=== PATIENT | female | born 1950 | race Caucasian/White ===

== ENCOUNTER 2018-06-26 12:10 | Inpatient (IN) | payer MEDICARE, OTHER ==
[~2018-06-26] VITALS: Ht 154.9 cm; Wt 55.2 kg
--- NOTE | 2018-06-26 12:56 | EKG ---
[address] [address] Test Date: 2018-06-26 Test Time: 12:54:47 Pat Name: KIRSTEN RICH Department: Room: Gender: F Fleet Sales Associate: : 1950 Requested By: PATRICIO MCPHERSON Order Number: [id number] Reading MD: Garret Dsouza MD Measurements Intervals [place] Rate: 85 P: 54 AR: 152 QRS: 58 QRSD: 88 T: 59 QT: 338 QTc: 407 Interpretive Statements SINUS RHYTHM Electronically Signed On 07-01-2018 11:44:44 CDT by Garret Dsouza MD
[2018-06-26 13:08] LABS: BASO % 0 % (0-3); EOS # 0.1 x10^3/uL (0.0-0.7); EOS % 1 % (0-3); HEMATOCRIT 40.8 % (36.0-47.0); LYMPH # 2.3 x10^3/uL (1.0-4.8); LYMPH % 29 % (24-48); MEAN CORPUSCULAR HEMOGLOBIN 31 pg (25-35); MEAN CORPUSCULAR HGB CONC 34 g/dL (31-37); MEAN CORPUSCULAR VOLUME 89 fL (79-100); MONO # 0.6 x10^3/uL (0.0-1.1); MONO % 7 % (0-9); NEUT # 4.7 x10^3uL (1.8-7.7); NEUT % 62 % (31-73); PLATELET COUNT 250 x10^3/uL (140-400); RED BLOOD COUNT 4.58 x10^6/uL (3.50-5.40); RED CELL DISTRIBUTION WIDTH 13.8 % (11.5-14.5); WHITE BLOOD COUNT 7.7 x10^3/uL (4.0-11.0)
--- NOTE | 2018-06-26 13:09 | PHYS DOC ---
Adult General Chief Complaint Chief Complaint: PSYCH EVALUATION [facility] HPI Patient is a 67 year old female who presents with suicidal ideation. Patient had history of bipolar disorder and had several years of [facility] service. Patient had one suicidal attempt after his ex made her to leave his home 3 days ago and while the kenney was at the home to make her leaving the house, she used a dog leash and tried to hang herself from a ceiling fan that did not work but caused some enrrique on her neck. Patient was at a temporary psych observation and had admitting to senior behavioral unit and sent to ER for medical clearance. Patient denies suicidal and homicidal ideation and hallucination at this time. Review of Systems Review of Systems Constitutional: Denies fever or chills [] Eyes: Denies change in visual acuity, redness, or eye pain [] HENT: Denies nasal congestion or sore throat [] Respiratory: Denies cough or shortness of breath [] Cardiovascular: No additional information not addressed in HPI [] GI: Denies abdominal pain, nausea, vomiting, bloody stools or diarrhea [] : Denies dysuria or hematuria [] Musculoskeletal: Denies back pain or joint pain [] Integument: Denies rash or skin lesions [] Neurologic: Denies headache, focal weakness or sensory changes [] Endocrine: Denies polyuria or polydipsia [] All other systems were reviewed and found to be within normal limits, except as documented in this note. Physical Exam Physical Exam Constitutional: Well developed, well nourished, no acute distress, non-toxic appearance, anxious. [] HENT: Normocephalic, atraumatic Eyes: PERRLA, EOMI, conjunctiva normal, no discharge. [] Neck: Normal range of motion, no tenderness, supple, no stridor, several area of old ecchymosis in bilateral side of neck. [] Cardiovascular:Heart rate regular rhythm, no murmur [] Lungs & Thorax: Bilateral breath sounds clear to auscultation [] Abdomen: Bowel sounds normal, soft, no tenderness, no masses, no pulsatile masses. [] Skin: Warm, dry, no erythema, no rash. [] Back: No tenderness, no CVA tenderness. [] Extremities: No tenderness, no cyanosis, no clubbing, ROM intact, no edema. [] Neurologic: Alert and oriented X 3, normal motor function, normal sensory function, no focal deficits noted. [] Psychologic: Affect anxious, judgement normal, mood normal. [] EKG EKG EKG interpreted by me. EKG at 1254 showed normal sinus rhythm at rate of 85, no acute ST and T-wave abnormalities.[] Radiology/Procedures Radiology/Procedures [] Course & Med Decision Making Course & Med Decision Making Pertinent Labs reviewed. (See chart for details) Patient was medically cleared for psych admission regarding suicidal ideation. [] Dragon Disclaimer Dragon Disclaimer This electronic medical record was generated, in whole or in part, using a voice recognition dictation system. Departure Departure: Impression: Primary Impression: Suicide attempt Additional Impression: Tobacco abuse Disposition: ADMITTED INPATIENT (at 1442) Condition: STABLE Referrals: DAMARI TARANGO DO (PCP) Problem Qualifiers PATRICIO MCPHERSON MD Jun 26, 2018 13:09
[2018-06-26 13:21] LABS: ALBUMIN 3.9 g/dL (3.4-5.0); ALBUMIN/GLOBULIN RATIO 1.1 (1.0-1.7); CALCIUM 9.7 mg/dL (8.5-10.1); CREATININE 1.1 mg/dL (0.6-1.0); GFR 49.5; MAGNESIUM 1.8 mg/dL (1.8-2.4); POTASSIUM 3.9 mmol/L (3.5-5.1); TOTAL BILIRUBIN 0.4 mg/dL (0.2-1.0); TOTAL PROTEIN 7.5 g/dL (6.4-8.2)
[2018-06-26 14:39] LABS: BACTERIA,URINE 0 /HPF (0-FEW); BARBITURATES NEG (NEG); BENZODIAZEPINES POS (NEG); BILIRUBIN,URINE NEG (NEG); CANNABINOIDS NEG (NEG); CLARITY,URINE CLEAR; COCAINE NEG (NEG); COLOR,URINE STRAW; GLUCOSE,URINE NEG (NEG); METHADONE NEG (NEG); NITRITE,URINE NEG (NEG); OPIATES NEG (NEG); PHENCYCLIDINE NEG (NEG); RBC,URINE 0 /HPF (0-2); SQUAMOUS EPITHELIAL CELL,UR FEW /LPF; UROBILINOGEN,URINE 0.2 mg/dL (0.2 mg/dL); WBC,URINE 0 /HPF (0-4)
[2018-06-26 14:40] LABS: AMPHETAMINE/METHAMPHETAMINE NEG (NEG)
[2018-06-26] MEDS ORDERED: METHYL SALICYLATE/MENTHOL TOPICAL OINTMENT 29GM TUBE. TP PRN (18:00)
[2018-06-26] MEDS ORDERED: MAG HYDROX/AL HYDROX/SIMETH 30 ML ORAL.SUSP PO PRN (18:00)
[2018-06-26] MEDS ORDERED: MAGNESIUM HYDROXIDE 2,400 MG/30 ML ORAL.SUSP. PO PRN (18:00)
[2018-06-26 18:08] VITALS: BP 150/86
[2018-06-26] MEDS ORDERED: THYR30TA PO (18:47)
[2018-06-26] MEDS ORDERED: ALBU18HF IH (18:47)
[2018-06-26] MEDS ORDERED: PROP15DR40 EACHEYE (18:47)
[2018-06-26] MEDS ORDERED: VITA1CAP PO (18:47)
[2018-06-26] MEDS ORDERED: DIAZ10TA4 PO (18:47)
[2018-06-26] MEDS ORDERED: GUAI600T47 PO (18:47)
[2018-06-26] MEDS ORDERED: DULO60CA6 PO (18:47)
[2018-06-26] MEDS ORDERED: BUDE10.2 IH (18:47)
[2018-06-26] MEDS ORDERED: MELA3TAB2 PO (18:47)
[2018-06-26] MEDS ORDERED: ALBUTEROL SULFATE 8GM INHALER. IH PRN (19:00)
[2018-06-26] MEDS ORDERED: POLYVINYL ALCOHOL/POVIDONE/PF OPHTH SOLUTION DROPERETTE. OU PRN (19:15)
[2018-06-26] MEDS ORDERED: ALBUTEROL SULFATE 2.5 MG/3 ML NEBU. NEB PRN (19:15)
[2018-06-26] MEDS: NICOTINE 7MG PATCH. TD SCH (19:47)
[2018-06-26] MEDS: diazePAM 5 MG TABLET PO SCH (20:20)
[2018-06-26] MEDS: ACETAMINOPHEN 325 MG TABLET PO PRN (20:20)
[2018-06-26] MEDS: MELATONIN 3 MG TABLET PO SCH (20:20)
--- NOTE | 2018-06-26 20:28 | HP ---
ADMIT DATE: 06/26/2018 PSYCHIATRIC ADMISSION HISTORY/EVALUATION IDENTIFYING DATA: The patient is a 67-year-old female referred from the [facility] in [place] by her primary care physician and the family preservation caseworker at [facility] on account of worsening symptoms of depression and after she attempted to hang herself by a cord tied around the ceiling fan. Reportedly, the ceiling fan dropped and she was not successful. She was being evicted from her home where she was living with her ex-. She states she has not had any prior psychiatric treatment, but recently has been depressed due to multiple psychosocial stressors. CHIEF COMPLAINT: "I do not feel like that now." HISTORY OF PRESENT ILLNESS: Reportedly, the patient was living at home alone, but was evicted on 06/24/2018. The home was owned by her ex- and reportedly "he kicked her out." She has an [employer] case. She made a serious suicide attempt by hanging as noted following the above incident and since then has been involved with the [facility] and has a family preservation caseworker, who coordinated this hospitalization. She had stayed overnight at the [facility] in [place] and was on one-on-one status the entire time. She has had a prior attempt by hanging in 1998 as well. She has also had worsening symptoms of depression, weight loss, insomnia, and has been on psychotropics to help with this. She has seen Dr. Rose, psychiatrist in the past and referred by Dr. Armin Melendez, her primary care physician. She does admit to a history of mood swings and prior diagnosis of bipolar disorder. No alcohol or drug abuse. The patient has some auditory hallucinations and further information from the family preservation caseworker. They believe she has been manic recently. PAST PSYCHIATRIC HISTORY: As above. PAST MEDICAL HISTORY: Thyroid dysfunction, COPD, anemia. DRUG ALLERGIES: CODEINE. CODE STATUS: FULL CODE. CURRENT PSYCHOTROPICS: Negative. FAMILY HISTORY: Noncontributory. SOCIAL HISTORY: No alcohol or drug abuse history. No history of physical, sexual, or elder abuse. She is not known to be a perpetrator. 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 ASSETS: The patient is cognitively intact, has support from the family preservation caseworker at the [facility]. REACTION TO HOSPITALIZATION: The patient is accepting of it. MENTAL STATUS EXAMINATION: The patient was seen individually on evening of 06/26/2018. She is well oriented. Speech coherent, at times somewhat pressured. Abstraction fair, computation is reasonable. Language function intact. Mood is dysphoric, anxious. Affect is mood congruent. Attention span is short. She is quite verbal forthcoming. She is thoroughly and closely assess for active suicidal ideation and denied this. Intellect average. Insight fair. Judgment intact to standard questioning. IMPRESSION: Probable major depressive disorder, recurrent, bipolar 1 disorder, depressed; anxiety disorder, unspecified; impulse control disorder, unspecified. Rest as above. PLAN: Admit to geropsychiatry unit at [facility]. I will see the patient daily individually from a psychiatric standpoint, medical followup per Dr. Llanes/Dr. Ng. Continue the patient on her current psychotropics, observe baseline, then adjust as clinically indicated. We will have nursing staff evaluate her closely for any suicidal ideation and see if she needs a higher level of care than 15-minute checks. We will get past psychiatric records as well. MAN Joselyn HOLLOWAY MD DR: GORDON/roddy JOB#: [id number] / [id number]
--- NOTE | 2018-06-26 20:52 | PDOC ---
Exam Note: Duran Note: Please also refer to the separate dictated note~for this date of service dictated separately.~Patient seen individually. Discussed the patient with Nursing staff reviewed the chart.~Reviewed interim history and current functioning. Reviewed vital signs,~Labs/ Radiology~and current medications noted below. Continue current treatment with the changes noted in the dictated addendum note Assessment: Vital Signs: Vital Signs Date Time Temp Pulse Resp B/P (MAP) Pulse Ox O2 Delivery O2 Flow Rate FiO2 06/26/18 18:08 97.7 84 18 150/86 (107) 93 06/26/18 17:00 Room Air Labs: Laboratory Tests Test 06/26/18 12:57 06/26/18 14:18 White Blood Count 7.7 x10^3/uL (4.0-11.0) Red Blood Count 4.58 x10^6/uL (3.50-5.40) Hemoglobin 14.0 g/dL (12.0-15.5) Hematocrit 40.8 % (36.0-47.0) Mean Corpuscular Volume 89 fL (79-100) Mean Corpuscular Hemoglobin 31 pg (25-35) Mean Corpuscular Hemoglobin Concent 34 g/dL (31-37) Red Cell Distribution Width 13.8 % (11.5-14.5) Platelet Count 250 x10^3/uL (140-400) Neutrophils (%) (Auto) 62 % (31-73) Lymphocytes (%) (Auto) 29 % (24-48) Monocytes (%) (Auto) 7 % (0-9) Eosinophils (%) (Auto) 1 % (0-3) Basophils (%) (Auto) 0 % (0-3) Neutrophils # (Auto) 4.7 x10^3uL (1.8-7.7) Lymphocytes # (Auto) 2.3 x10^3/uL (1.0-4.8) Monocytes # (Auto) 0.6 x10^3/uL (0.0-1.1) Eosinophils # (Auto) 0.1 x10^3/uL (0.0-0.7) Basophils # (Auto) 0.0 x10^3/uL (0.0-0.2) Sodium Level 142 mmol/L (136-145) Potassium Level 3.9 mmol/L (3.5-5.1) Chloride Level 103 mmol/L (98-107) Carbon Dioxide Level 32 mmol/L (21-32) Anion Gap 7 (6-14) Blood Urea Nitrogen 13 mg/dL (7-20) Creatinine 1.1 mg/dL (0.6-1.0) H Estimated GFR (Cockcroft-Gault) 49.5 BUN/Creatinine Ratio 12 (6-20) Glucose Level 144 mg/dL (70-99) H Calcium Level 9.7 mg/dL (8.5-10.1) Magnesium Level 1.8 mg/dL (1.8-2.4) Total Bilirubin 0.4 mg/dL (0.2-1.0) Aspartate Amino Transferase (AST) 28 U/L (15-37) Alanine Aminotransferase (ALT) 29 U/L (14-59) Alkaline Phosphatase 62 U/L (46-116) Total Protein 7.5 g/dL (6.4-8.2) Albumin 3.9 g/dL (3.4-5.0) Albumin/Globulin Ratio 1.1 (1.0-1.7) Urine Collection Type Unknown Urine Color Straw Urine Clarity Clear Urine pH 7.0 Urine Specific Fonda 1.010 Urine Protein Neg (NEG-TRACE) Urine Glucose (UA) Neg mg/dL (NEG) Urine Ketones (Stick) Neg mg/dL (NEG) Urine Blood Neg (NEG) Urine Nitrite Neg (NEG) Urine Bilirubin Neg (NEG) Urine Urobilinogen Dipstick 0.2 mg/dL (0.2 mg/dL) Urine Leukocyte Esterase Neg (NEG) Urine RBC 0 /HPF (0-2) Urine WBC 0 /HPF (0-4) Urine Squamous Epithelial Cells Few /LPF Urine Bacteria 0 /HPF (0-FEW) Urine Opiates Screen Neg (NEG) Urine Methadone Screen Neg (NEG) Urine Barbiturates Neg (NEG) Urine Phencyclidine Screen Neg (NEG) Urine Amphetamine/Methamphetamine Neg (NEG) Urine Benzodiazepines Screen Pos (NEG) Urine Cocaine Screen Neg (NEG) Urine Cannabinoids Screen Neg (NEG) Urine Ethyl Alcohol Neg (NEG) Current Medications: Meds: Current Medications Acetaminophen (Tylenol) 650 mg PRN Q6HRS PRN PO PAIN / TEMP Last administered on 06/26/18at 20:20; Start 06/26/18 at 18:00 Multi-Ingredient Ointment (Analgesic [place]) 1 adilene PRN QID PRN TP MUSCLE PAIN; Start 06/26/18 at 18:00 Al Hydroxide/Mg Hydroxide (Mylanta Plus Xs) 15 ml PRN AFTMEALHC PRN PO DYSPEPSIA; Start 06/26/18 at 18:00 Magnesium Hydroxide (Milk Of Magnesia) 2,400 mg PRN QHS PRN PO CONSTIPATION; Start 06/26/18 at 18:00 Nicotine (Nicoderm Cq 7mg) 1 patch DAILY TD Last administered on 06/26/18at 19: 47; Start 06/26/18 at 19:30 Albuterol Sulfate (Ventolin Hfa Inhaler) 1 puff PRN Q2HR PRN IH FOR ASTHMA; Start 06/26/18 at 19:00; Status UNV Guaifenesin (Mucinex Er) 600 mg BID PO Last administered on 06/26/18at 20:20; Start 06/26/18 at 21:00 Vitamin B Complex 1 cap DAILY PO ; Start 06/27/18 at 09:00 Non-Formulary Medication (Budesonide/ Formoterol Fumarate (Symbicort 160-4.5 Mcg Inhaler)) 2 puff BID IH ; Start 06/26/18 at 21:00; Status UNV Artificial Tears (Refresh Classic) 1 drop PRN QID PRN OU DRY EYE; Start at 19:15 Thyroid ([place] Thyroid) 30 mg DAILY PO ; Start 06/27/18 at 09:00 Diazepam (Valium) 10 mg BID PO Last administered on 06/26/18at 20:20; Start at 21:00 Duloxetine HCl (Cymbalta) 60 mg DAILY PO ; Start 06/27/18 at 09:00 Melatonin 3 mg QHS PO Last administered on 06/26/18at 20:20; Start 06/26/18 at 21:00 Albuterol Sulfate (Ventolin) 2.5 mg PRN Q2HR PRN NEB SHORTNESS OF BREATH; Start 06/26/18 at 19:15 Albuterol Sulfate (Ventolin) 2.5 mg RTQID NEB ; Start 06/26/18 at 20:00 Budesonide (Pulmicort) 0.5 mg RTBID NEB ; Start 06/26/18 at 20:00 Active Scripts Active Reported Symbicort 160-4.5 Mcg Inhaler (Budesonide/Formoterol Fumarate) 10.2 Gm Hfa.aer.ad 2 Puff IH BID Ventolin Hfa Inhaler (Albuterol Sulfate) 18 Gm Hfa.aer.ad 1 Puff IH PRN Q2HR PRN Systane 0.3-0.4% Eye Drops (Propylene Glycol/Peg 400) 15 Ml Drops 1 Drop EACHEYE QID PRN Vitamin B Complex 1 Each Capsule 1 Each PO DAILY Mucinex (Guaifenesin) 600 Mg Tablet.er 600 Mg PO BID [place] Thyroid (Thyroid,Pork) 30 Mg Tablet 30 Mg PO DAILY Melatonin 3 Mg Tablet 3 Mg PO QHS Cymbalta (Duloxetine Hcl) 60 Mg Capsule.dr 60 Mg PO DAILY Diazepam 10 Mg Tablet 10 Mg PO BID I have reviewed the current psychotropics carefully including drug interactions. Risk benefit ratio favors no change other than as noted in my dictated progress note. Diagnosis: Problems: (1) Suicide attempt (2) Tobacco abuse (3) Anxiety disorder (4) Major depressive disorder, recurrent episode (5) Impulse control disorder MICHELLE HOLLOWAY MD Jun 26, 2018 20:52
[2018-06-26] MEDS: BUDESONIDE 0.5 MG/2 ML NEBU NEB SCH (20:59)
[2018-06-26] MEDS: ALBUTEROL SULFATE 2.5 MG/3 ML NEBU. NEB SCH (20:59)
[2018-06-26] MEDS ORDERED: NON FORMULARY ITEM (Budesonide/Formoterol Fumarate (Symbicort 160-4.5 Mcg Inhaler) 2 PUFF) IH SCH (21:00)
[2018-06-27 01:12] LABS: THYROXINE 5.8 ug/dL (4.5-12.0)
[2018-06-27 03:09] LABS: HEMOGLOBIN A1C 5.3 % (4.8-5.6)
[2018-06-27] MEDS: ACETAMINOPHEN 325 MG TABLET PO PRN ×2 (04:53→23:00)
[2018-06-27] MEDS: ALBUTEROL SULFATE 2.5 MG/3 ML NEBU. NEB SCH ×4 (05:35→20:54)
[2018-06-27 06:38] VITALS: BP 138/78
[2018-06-27] MEDS: THYROID,PORK 60 MG TABLET PO SCH (08:04)
[2018-06-27] MEDS: diazePAM 5 MG TABLET PO SCH ×2 (08:04→19:23)
[2018-06-27] MEDS: VITAMIN B COMPLEX CAPSULE. PO SCH (08:04)
[2018-06-27] MEDS: DULoxetine HCL 60 MG CAPSULE.DR PO SCH (08:04)
[2018-06-27] MEDS: NICOTINE 7MG PATCH. TD SCH (08:05)
[2018-06-27] MEDS: BUDESONIDE 0.5 MG/2 ML NEBU NEB SCH ×2 (10:03→20:53)
[2018-06-27 13:48] LABS: THYROID STIM HORMONE (TSH) 3.361 uIU/mL (0.358-3.740)
[2018-06-27 15:43] VITALS: BP 168/93
[2018-06-27 18:26] VITALS: BP 114/73
[2018-06-27] MEDS: MELATONIN 3 MG TABLET PO SCH (19:22)
[2018-06-27] MEDS: traMADol 50 MG TABLET PO PRN (19:23)
--- NOTE | 2018-06-27 20:52 | PDOC ---
Exam Note: Duran Note: Please also refer to the separate dictated note~for this date of service dictated separately.~Patient seen individually. Discussed the patient with Nursing staff reviewed the chart.~Reviewed interim history and current functioning. Reviewed vital signs,~Labs/ Radiology~and current medications noted below. Continue current treatment with the changes noted in the dictated addendum note Assessment: Vital Signs: Vital Signs Date Time Temp Pulse Resp B/P (MAP) Pulse Ox O2 Delivery O2 Flow Rate FiO2 06/27/18 20:23 97 06/27/18 19:23 18 Nasal Cannula 3.0 06/27/18 18:26 97.8 76 114/73 (87) I&O Intake and Output 06/27/18 07:00 Intake Total 840 ml Balance 840 ml Intake Oral 840 ml Current Medications: Meds: Current Medications Acetaminophen (Tylenol) 650 mg PRN Q6HRS PRN PO PAIN / TEMP Last administered on 06/27/18at 04:53; Start 06/26/18 at 18:00 Multi-Ingredient Ointment (Analgesic [place]) 1 adilene PRN QID PRN TP MUSCLE PAIN; Start 06/26/18 at 18:00 Al Hydroxide/Mg Hydroxide (Mylanta Plus Xs) 15 ml PRN AFTMEALHC PRN PO DYSPEPSIA; Start 06/26/18 at 18:00 Magnesium Hydroxide (Milk Of Magnesia) 2,400 mg PRN QHS PRN PO CONSTIPATION; Start 06/26/18 at 18:00 Nicotine (Nicoderm Cq 7mg) 1 patch DAILY TD Last administered on 06/27/18at 08: 05; Start 06/26/18 at 19:30 Albuterol Sulfate (Ventolin Hfa Inhaler) 1 puff PRN Q2HR PRN IH FOR ASTHMA; Start 06/26/18 at 19:00; Status UNV Guaifenesin (Mucinex Er) 600 mg BID PO Last administered on 06/26/18at 20:20; Start 06/26/18 at 21:00; Stop 06/27/18 at 06:30; Status DC Vitamin B Complex 1 cap DAILY PO Last administered on 06/27/18at 08:04; Start at 09:00 Non-Formulary Medication (Budesonide/ Formoterol Fumarate (Symbicort 160-4.5 Mcg Inhaler)) 2 puff BID IH ; Start 06/26/18 at 21:00; Status UNV Artificial Tears (Refresh Classic) 1 drop PRN QID PRN OU DRY EYE; Start at 19:15 Thyroid ([place] Thyroid) 30 mg DAILY PO Last administered on 06/27/18at 08:04; Start 06/27/18 at 09:00 Diazepam (Valium) 10 mg BID PO Last administered on 06/27/18at 19:23; Start at 21:00 Duloxetine HCl (Cymbalta) 60 mg DAILY PO Last administered on 06/27/18at 08:04; Start 06/27/18 at 09:00 Melatonin 3 mg QHS PO Last administered on 06/27/18at 19:22; Start 06/26/18 at 21:00 Albuterol Sulfate (Ventolin) 2.5 mg PRN Q2HR PRN NEB SHORTNESS OF BREATH; Start 06/26/18 at 19:15 Albuterol Sulfate (Ventolin) 2.5 mg RTQID NEB Last administered on 06/27/18at 15 :43; Start 06/26/18 at 20:00 Budesonide (Pulmicort) 0.5 mg RTBID NEB Last administered on 06/27/18at 10:03; Start 06/26/18 at 20:00 Guaifenesin (Mucinex Er) 600 mg PRN BID PRN PO CONGESTION; Start 06/27/18 at 06 :30 Tramadol HCl (Ultram) 50 mg PRN Q6HRS PRN PO PAIN Last administered on at 19:23; Start 06/27/18 at 17:15 Hydroxyzine Pamoate (Vistaril) 50 mg Q4HRS W/A PRN PO ITCHING; Start 06/27/18 at 19:00 Active Scripts Active Reported Symbicort 160-4.5 Mcg Inhaler (Budesonide/Formoterol Fumarate) 10.2 Gm Hfa.aer.ad 2 Puff IH BID Ventolin Hfa Inhaler (Albuterol Sulfate) 18 Gm Hfa.aer.ad 1 Puff IH PRN Q2HR PRN Systane 0.3-0.4% Eye Drops (Propylene Glycol/Peg 400) 15 Ml Drops 1 Drop EACHEYE QID PRN Vitamin B Complex 1 Each Capsule 1 Each PO DAILY Mucinex (Guaifenesin) 600 Mg Tablet.er 600 Mg PO BID [place] Thyroid (Thyroid,Pork) 30 Mg Tablet 30 Mg PO DAILY Melatonin 3 Mg Tablet 3 Mg PO QHS Cymbalta (Duloxetine Hcl) 60 Mg Capsule.dr 60 Mg PO DAILY Diazepam 10 Mg Tablet 10 Mg PO BID I have reviewed the current psychotropics carefully including drug interactions. Risk benefit ratio favors no change other than as noted in my dictated progress note. Diagnosis: Problems: (1) Suicide attempt (2) Tobacco abuse (3) Anxiety disorder (4) Major depressive disorder, recurrent episode (5) Impulse control disorder MICHELLE HOLLOWAY MD Jun 27, 2018 20:52
[2018-06-27] MEDS: hydrOXYzine PAMOATE 25 MG CAPSULE PO PRN (23:00)
--- NOTE | 2018-06-28 04:14 | CONS ---
DATE OF CONSULTATION: 06/27/2018 REASON FOR CONSULTATION: Medical management. HISTORY OF PRESENT ILLNESS: The patient is a 67-year-old female patient who was referred from [facility] in [place] by her primary care physician and the leather case finisher at [facility] on account of worsening symptoms of depression after she attempted to hang herself by a cord tied around the ceiling fan. Reportedly, the ceiling fan dropped and she was not successful. This happened after her evicted here from her home where she was living with her ex-. She was admitted. She apparently has a prior attempt by hanging in 1998 as well. She has also had worsening symptoms of depression, weight loss, and insomnia, has been on psychotropic medication to help with this. She does admit to history of mood swings and prior diagnosed with bipolar disorder. She has some auditory hallucination on further information from the leather case finisher and [facility]. PAST MEDICAL HISTORY: Significant for hypothyroidism, chronic obstructive pulmonary disease and anemia. ALLERGIES: She is allergic to CODEINE. MEDICATIONS: She is currently on following medications: Albuterol sulfate 1 puff every 2 hours, duloxetine 60 mg once a day, diazepam 10 mg twice a day, Symbicort 160/4.5 mcg inhaler 2 puffs twice a day, guaifenesin (Mucinex) 600 mg p.o. b.i.d., Systane 1 drop to each eye 4 times a day, thyroid pork ([place] Thyroid) 30 mg once a day, vitamin B complex 1 tablet once a day, melatonin 3 mg at bedtime. FAMILY HISTORY: Noncontributory. SOCIAL HISTORY: She does smoke, but does not drink alcohol or use recreational drugs. REVIEW OF SYSTEMS: As in history of present illness. PHYSICAL EXAMINATION GENERAL: When I examined her, she looked pale, somewhat cachectic, but no jaundice, cyanosis, or thyromegaly. No jugular venous distention. No lower limb edema. VITAL SIGNS: Her heart rate was 98, blood pressure was 168/93. Her temperature was 97.2, respiratory rate was 20, and oxygen saturation was 97% on 2 liters of oxygen. HEAD, EYES, EARS, NOSE AND THROAT: Showed normocephalic, atraumatic. NECK: Supple. HEART: Showed normal first and second heart sounds with no gallop, rub or murmur. CHEST: Clear to auscultation. No crepitation or rhonchi. ABDOMEN: Scaphoid, soft, nontender. No guarding or rigidity. No organomegaly. Hernial orifices intact. Bowel sounds normal. NEUROLOGIC: She is awake, alert, responding appropriately. All cranial nerves intact. EXTREMITIES: She moves all extremities without difficulty. She ambulates with a walker. LABORATORY DATA: Showed a white cell count of 7700, hemoglobin 14, hematocrit 41, MCV 89 and platelet count 250,000 with normal manual differential. Her chemistry showed a serum sodium of 142, potassium 3.9, chloride 103, bicarbonate 32, anion gap of 7, BUN 13, creatinine 1.1, estimated GFR was 49 mL per minute. Her glucose 144, calcium was 9.7, magnesium 1.8. Total bilirubin, AST, ALT, alkaline phosphatase were normal. Total protein was 7.5, albumin 3.9. Her hemoglobin A1c was 5.3%. Her serum iron was 126, TIBC was 287, iron saturation was 44%. Her serum triglycerides were 129, total cholesterol was 144, LDL was 153, VLDL was 25, and HDL cholesterol was 66 and the ratio was 3. Her vitamin B12 was 767 pg/mL. TSH was 3.3361, total T4 was 5.8, total T3 was 120. Urinalysis was essentially unremarkable and negative and urine toxicology screen was positive for benzodiazepine. ASSESSMENT AND PLAN: In summary, this is a 67-year-old female patient who was admitted with worsening symptoms of depression after she had attempted to hang herself by a cord tied around the ceiling fan. Reportedly, the ceiling fan has dropped and she was not successful. She apparently has had a prior attempt by hanging in 1998 as well. She has weight loss, insomnia and apparently has been on psychotropic medication to help with this. She has seen multiple psychiatrists before and she does admit to history of mood swings and prior diagnosis of bipolar disorder. Medically, the patient is known to have hypothyroidism, chronic obstructive pulmonary disease as well as anemia and hyperlipidemia. From a medical point of view, all her vital signs and lab work seem to be within acceptable range. She is both clinically and biochemically euthyroid. She is on oxygen for her chronic obstructive pulmonary disease and overall she seemed to be medically stable. I will obviously follow all her lab work that is still pending at the time of this dictation and make any necessary recommendation. Thank you, Dr. Landry, for allowing me to participate in the care of this patient. TRAMAINE COMBS MD DR: BASILIO/roddy JOB#: [id number] / [id number]
[2018-06-28] MEDS: BUDESONIDE 0.5 MG/2 ML NEBU NEB SCH ×2 (06:01→20:55)
[2018-06-28] MEDS: ALBUTEROL SULFATE 2.5 MG/3 ML NEBU. NEB SCH ×4 (06:01→20:55)
[2018-06-28 06:15] VITALS: BP 121/67
[2018-06-28] MEDS: VITAMIN B COMPLEX CAPSULE. PO SCH (08:43)
[2018-06-28] MEDS: NICOTINE 7MG PATCH. TD SCH (08:44)
[2018-06-28] MEDS: diazePAM 5 MG TABLET PO SCH ×2 (08:44→20:13)
[2018-06-28] MEDS: DULoxetine HCL 60 MG CAPSULE.DR PO SCH (08:44)
[2018-06-28] MEDS: THYROID,PORK 60 MG TABLET PO SCH (08:45)
[2018-06-28] MEDS: ACETAMINOPHEN 325 MG TABLET PO PRN (11:54)
[2018-06-28 16:35] VITALS: BP 114/70
[2018-06-28] MEDS: MELATONIN 3 MG TABLET PO SCH (20:12)
[2018-06-28] MEDS: hydrOXYzine PAMOATE 25 MG CAPSULE PO PRN (20:12)
[2018-06-28] MEDS: BACLOFEN 10 MG TABLET PO SCH (20:14)
--- NOTE | 2018-06-28 23:06 | PDOC ---
Exam Note: Duran Note: Please also refer to the separate dictated note~for this date of service dictated separately.~Patient seen individually. Discussed the patient with Nursing staff reviewed the chart.~Reviewed interim history and current functioning. Reviewed vital signs,~Labs/ Radiology~and current medications noted below. Continue current treatment with the changes noted in the dictated addendum note Assessment: Vital Signs: Vital Signs Date Time Temp Pulse Resp B/P (MAP) Pulse Ox O2 Delivery O2 Flow Rate FiO2 06/28/18 20:57 98 Nasal Cannula 2.0 06/28/18 16:35 98.0 84 20 114/70 (85) I&O Intake and Output 06/28/18 07:00 Intake Total 1125 ml Balance 1125 ml Intake Oral 1125 ml Current Medications: Meds: Current Medications Acetaminophen (Tylenol) 650 mg PRN Q6HRS PRN PO PAIN / TEMP Last administered on 06/28/18at 11:54; Start 06/26/18 at 18:00 Multi-Ingredient Ointment (Analgesic [place]) 1 adilene PRN QID PRN TP MUSCLE PAIN; Start 06/26/18 at 18:00 Al Hydroxide/Mg Hydroxide (Mylanta Plus Xs) 15 ml PRN AFTMEALHC PRN PO DYSPEPSIA; Start 06/26/18 at 18:00 Magnesium Hydroxide (Milk Of Magnesia) 2,400 mg PRN QHS PRN PO CONSTIPATION; Start 06/26/18 at 18:00 Nicotine (Nicoderm Cq 7mg) 1 patch DAILY TD Last administered on 06/28/18at 08:44 ; Start 06/26/18 at 19:30 Albuterol Sulfate (Ventolin Hfa Inhaler) 1 puff PRN Q2HR PRN IH FOR ASTHMA; Start 06/26/18 at 19:00; Status UNV Guaifenesin (Mucinex Er) 600 mg BID PO Last administered on 06/26/18at 20:20; Start 06/26/18 at 21:00; Stop 06/27/18 at 06:30; Status DC Vitamin B Complex 1 cap DAILY PO Last administered on 06/28/18at 08:43; Start at 09:00 Non-Formulary Medication (Budesonide/ Formoterol Fumarate (Symbicort 160-4.5 Mcg Inhaler)) 2 puff BID IH ; Start 06/26/18 at 21:00; Status UNV Artificial Tears (Refresh Classic) 1 drop PRN QID PRN OU DRY EYE; Start at 19:15 Thyroid ([place] Thyroid) 30 mg DAILY PO Last administered on 06/28/18at 08:45; Start 06/27/18 at 09:00 Diazepam (Valium) 10 mg BID PO Last administered on 06/28/18at 20:13; Start 06/26 at 21:00 Duloxetine HCl (Cymbalta) 60 mg DAILY PO Last administered on 06/28/18at 08:44; Start 06/27/18 at 09:00 Melatonin 3 mg QHS PO Last administered on 06/28/18 20:12; Start 06/26/18 at 21 :00 Albuterol Sulfate (Ventolin) 2.5 mg PRN Q2HR PRN NEB SHORTNESS OF BREATH; Start 06/26/18 at 19:15 Albuterol Sulfate (Ventolin) 2.5 mg RTQID NEB Last administered on 06/28/18at 20: 55; Start 06/26/18 at 20:00 Budesonide (Pulmicort) 0.5 mg RTBID NEB Last administered on 06/28/18at 20:55; Start 06/26/18 at 20:00 Guaifenesin (Mucinex Er) 600 mg PRN BID PRN PO CONGESTION; Start 06/27/18 at 06 :30 Tramadol HCl (Ultram) 50 mg PRN Q6HRS PRN PO PAIN Last administered on at 19:23; Start 06/27/18 at 17:15 Hydroxyzine Pamoate (Vistaril) 50 mg Q4HRS W/A PRN PO ITCHING Last administered on 06/28/18 20:12; Start 06/27/18 at 19:00 Baclofen (Lioresal) 5 mg TID PO Last administered on 06/28/18at 20:14; Start 06/28 at 21:00 Duloxetine HCl (Cymbalta) 20 mg DAILY PO ; Start 06/29/18 at 09:00 Active Scripts Active Reported Symbicort 160-4.5 Mcg Inhaler (Budesonide/Formoterol Fumarate) 10.2 Gm Hfa.aer.ad 2 Puff IH BID Ventolin Hfa Inhaler (Albuterol Sulfate) 18 Gm Hfa.aer.ad 1 Puff IH PRN Q2HR PRN Systane 0.3-0.4% Eye Drops (Propylene Glycol/Peg 400) 15 Ml Drops 1 Drop EACHEYE QID PRN Vitamin B Complex 1 Each Capsule 1 Each PO DAILY Mucinex (Guaifenesin) 600 Mg Tablet.er 600 Mg PO BID [place] Thyroid (Thyroid,Pork) 30 Mg Tablet 30 Mg PO DAILY Melatonin 3 Mg Tablet 3 Mg PO QHS Cymbalta (Duloxetine Hcl) 60 Mg Capsule.dr 60 Mg PO DAILY Diazepam 10 Mg Tablet 10 Mg PO BID I have reviewed the current psychotropics carefully including drug interactions. Risk benefit ratio favors no change other than as noted in my dictated progress note. Diagnosis: Problems: (1) Suicide attempt (2) Tobacco abuse (3) Anxiety disorder (4) Major depressive disorder, recurrent episode (5) Impulse control disorder MICHELLE HOLLOWAY MD Jun 28, 2018 23:06
[2018-06-29] MEDS: hydrOXYzine PAMOATE 25 MG CAPSULE PO PRN ×2 (04:47→19:44)
[2018-06-29] MEDS: ACETAMINOPHEN 325 MG TABLET PO PRN (04:47)
[2018-06-29] MEDS: BUDESONIDE 0.5 MG/2 ML NEBU NEB SCH ×2 (05:23→19:46)
[2018-06-29] MEDS: ALBUTEROL SULFATE 2.5 MG/3 ML NEBU. NEB SCH ×4 (05:23→19:46)
[2018-06-29 06:21] VITALS: BP 137/67
[2018-06-29] MEDS: VITAMIN B COMPLEX CAPSULE. PO SCH (08:44)
[2018-06-29] MEDS: DULoxetine HCL 60 MG CAPSULE.DR PO SCH (08:45)
[2018-06-29] MEDS: BACLOFEN 10 MG TABLET PO SCH ×3 (08:45→19:44)
[2018-06-29] MEDS: DULoxetine HCL 20 MG CAPSULE.DR PO SCH (08:45)
[2018-06-29] MEDS: NICOTINE 7MG PATCH. TD SCH (08:46)
[2018-06-29] MEDS: diazePAM 5 MG TABLET PO SCH ×2 (08:46→19:44)
--- NOTE | 2018-06-29 09:42 | PN ---
DATE: 06/27/2018 PSYCHIATRIC PROGRESS NOTE This is a late entry 06/27/2018 covers elements not covered in my initial note. SUBJECTIVE: I met with the patient in the evening. The patient slept 7 hours previous night. Overall, she is adapting to the unit. She denies she has a past history of bipolar disorder, even though her records reflect this. She complains of increased anxiety, wanting increased Valium and she is already on 10 b.i.d. We will add hydroxyzine 50 mg q. 2 hours p.r.n. anxiety, max 100 mg in 24 hours. REVIEW OF SYSTEMS: No CV, , pulmonary, eye, ENT system symptoms on review. MENTAL STATUS EXAM: Oriented reasonably. Speech is coherent, rapid at times. Abstraction fair, computation impaired, language function intact, attention span short. Mood and affect showing improvement, somewhat anxious, labile at times. No suicidal ideation. LABORATORY DATA: Reviewed. IMPRESSION: Major depressive disorder, recurrent versus bipolar 1 disorder, mixed with psychotic features; impulse control disorder; anxiety disorder, unspecified. PLAN: Continue psychotropics from initial note. Consider increasing Cymbalta, get past psychiatric records and if bipolar diagnosis suggested consider a mood stabilizer. MAN Joselyn HOLLOWAY MD DR: GORDON/roddy JOB#: [id number] / [id number]
--- NOTE | 2018-06-29 09:47 | PN ---
DATE: 06/28/2018 PSYCHIATRIC PROGRESS NOTE This is a late entry 06/28/2018, covers elements not covered in my initial note. SUBJECTIVE: I met with the patient in the evening at length in her room. The patient slept 7-1/4 hours previous evening. Denies suicidal ideation, started on baclofen for muscle cramps and doing better. We need to get past psychiatric records for questionable diagnosis of bipolar disorder. REVIEW OF SYSTEMS: No CV, , pulmonary, eye, ENT system symptoms on review. Reliability fair. MENTAL STATUS EXAM: Oriented, reasonably well. Speech coherent at times, somewhat pressured. Abstraction fair, computation impaired, language function intact, attention span short. Mood and affect somewhat labile, anxious. No suicidal ideation. LABORATORY DATA: Reviewed. IMPRESSION: Major depressive disorder, recurrent, rule out bipolar 1 disorder, mixed versus depressed; anxiety disorder, unspecified. Rest unchanged. PLAN: Continue psychotropics mentioned in my initial note, increase Cymbalta from 60 mg a day to 80 mg a day, get past psychiatric records. MAN Joselyn HOLLOWAY MD DR: GORDON/roddy JOB#: [id number] / [id number]
[2018-06-29] MEDS: THYROID,PORK 60 MG TABLET PO SCH (12:06)
[2018-06-29 16:05] VITALS: BP 113/69
[2018-06-29] MEDS: MELATONIN 3 MG TABLET PO SCH (19:43)
[2018-06-29] MEDS: traMADol 50 MG TABLET PO PRN (19:43)
--- NOTE | 2018-06-29 20:50 | PDOC ---
Exam Note: Duran Note: Please also refer to the separate dictated note~for this date of service dictated separately.~Patient seen individually. Discussed the patient with Nursing staff reviewed the chart.~Reviewed interim history and current functioning. Reviewed vital signs,~Labs/ Radiology~and current medications noted below. Continue current treatment with the changes noted in the dictated addendum note Assessment: Vital Signs: Vital Signs Date Time Temp Pulse Resp B/P (MAP) Pulse Ox O2 Delivery O2 Flow Rate FiO2 06/29/18 19:48 Room Air 06/29/18 19:43 18 95 06/29/18 16:05 97.8 96 113/69 (84) 06/29/18 05:25 2.0 I&O Intake and Output 06/29/18 07:00 Intake Total 2040 ml Balance 2040 ml Intake Oral 2040 ml # Voids 1 # Bowel Movements 1 Current Medications: Meds: Current Medications Acetaminophen (Tylenol) 650 mg PRN Q6HRS PRN PO PAIN / TEMP Last administered on 06/29/18at 04:47; Start 06/26/18 at 18:00 Multi-Ingredient Ointment (Analgesic [place]) 1 adilene PRN QID PRN TP MUSCLE PAIN; Start 06/26/18 at 18:00 Al Hydroxide/Mg Hydroxide (Mylanta Plus Xs) 15 ml PRN AFTMEALHC PRN PO DYSPEPSIA; Start 06/26/18 at 18:00 Magnesium Hydroxide (Milk Of Magnesia) 2,400 mg PRN QHS PRN PO CONSTIPATION; Start 06/26/18 at 18:00 Nicotine (Nicoderm Cq 7mg) 1 patch DAILY TD Last administered on 06/29/18at 08:46 ; Start 06/26/18 at 19:30 Albuterol Sulfate (Ventolin Hfa Inhaler) 1 puff PRN Q2HR PRN IH FOR ASTHMA; Start 06/26/18 at 19:00; Status UNV Guaifenesin (Mucinex Er) 600 mg BID PO Last administered on 06/26/18at 20:20; Start 06/26/18 at 21:00; Stop 06/27/18 at 06:30; Status DC Vitamin B Complex 1 cap DAILY PO Last administered on 06/29/18at 08:44; Start at 09:00 Non-Formulary Medication (Budesonide/ Formoterol Fumarate (Symbicort 160-4.5 Mcg Inhaler)) 2 puff BID IH ; Start 06/26/18 at 21:00; Status UNV Artificial Tears (Refresh Classic) 1 drop PRN QID PRN OU DRY EYE; Start at 19:15 Thyroid ([place] Thyroid) 30 mg DAILY PO Last administered on 06/29/18 12:06; Start 06/27/18 at 09:00 Diazepam (Valium) 10 mg BID PO Last administered on 06/29/18 19:44; Start 06/26 at 21:00 Duloxetine HCl (Cymbalta) 60 mg DAILY PO Last administered on 06/29/18 08:45; Start 06/27/18 at 09:00 Melatonin 3 mg QHS PO Last administered on 06/29/18 19:43; Start 06/26/18 at 21 :00 Albuterol Sulfate (Ventolin) 2.5 mg PRN Q2HR PRN NEB SHORTNESS OF BREATH; Start 06/26/18 at 19:15 Albuterol Sulfate (Ventolin) 2.5 mg RTQID NEB Last administered on 06/29/18 19: 46; Start 06/26/18 at 20:00 Budesonide (Pulmicort) 0.5 mg RTBID NEB Last administered on 06/29/18 19:46; Start 06/26/18 at 20:00 Guaifenesin (Mucinex Er) 600 mg PRN BID PRN PO CONGESTION; Start 06/27/18 at 06 :30 Tramadol HCl (Ultram) 50 mg PRN Q6HRS PRN PO PAIN Last administered on 19:43; Start 06/27/18 at 17:15 Hydroxyzine Pamoate (Vistaril) 50 mg Q4HRS W/A PRN PO ITCHING Last administered on 06/29/18 19:44; Start 06/27/18 at 19:00 Baclofen (Lioresal) 5 mg TID PO Last administered on 06/29/18 19:44; Start 06/28 at 21:00 Duloxetine HCl (Cymbalta) 20 mg DAILY PO Last administered on 06/29/18 08:45; Start 06/29/18 at 09:00 Active Scripts Active Reported Symbicort 160-4.5 Mcg Inhaler (Budesonide/Formoterol Fumarate) 10.2 Gm Hfa.aer.ad 2 Puff IH BID Ventolin Hfa Inhaler (Albuterol Sulfate) 18 Gm Hfa.aer.ad 1 Puff IH PRN Q2HR PRN Systane 0.3-0.4% Eye Drops (Propylene Glycol/Peg 400) 15 Ml Drops 1 Drop EACHEYE QID PRN Vitamin B Complex 1 Each Capsule 1 Each PO DAILY Mucinex (Guaifenesin) 600 Mg Tablet.er 600 Mg PO BID [place] Thyroid (Thyroid,Pork) 30 Mg Tablet 30 Mg PO DAILY Melatonin 3 Mg Tablet 3 Mg PO QHS Cymbalta (Duloxetine Hcl) 60 Mg Capsule.dr 60 Mg PO DAILY Diazepam 10 Mg Tablet 10 Mg PO BID I have reviewed the current psychotropics carefully including drug interactions. Risk benefit ratio favors no change other than as noted in my dictated progress note. Diagnosis: Problems: (1) Suicide attempt (2) Tobacco abuse (3) Anxiety disorder (4) Major depressive disorder, recurrent episode (5) Impulse control disorder MICHELLE HOLLOWAY MD Jun 29, 2018 20:50
[2018-06-30] MEDS: traMADol 50 MG TABLET PO PRN ×2 (05:29→22:33)
[2018-06-30] MEDS: ALBUTEROL SULFATE 2.5 MG/3 ML NEBU. NEB SCH ×4 (05:31→20:18)
[2018-06-30] MEDS: BUDESONIDE 0.5 MG/2 ML NEBU NEB SCH ×3 (05:32→20:17)
[2018-06-30 06:02] VITALS: BP 162/79
[2018-06-30] MEDS: VITAMIN B COMPLEX CAPSULE. PO SCH (08:31)
[2018-06-30] MEDS: THYROID,PORK 60 MG TABLET PO SCH (08:32)
[2018-06-30] MEDS: DULoxetine HCL 20 MG CAPSULE.DR PO SCH (08:33)
[2018-06-30] MEDS: DULoxetine HCL 60 MG CAPSULE.DR PO SCH (08:33)
[2018-06-30] MEDS: BACLOFEN 10 MG TABLET PO SCH ×3 (08:34→19:46)
[2018-06-30] MEDS: NICOTINE 7MG PATCH. TD SCH (08:35)
[2018-06-30] MEDS: diazePAM 5 MG TABLET PO SCH ×2 (08:35→19:49)
[2018-06-30 16:25] VITALS: BP 173/87
[2018-06-30] MEDS: MELATONIN 3 MG TABLET PO SCH (19:46)
[2018-06-30] MEDS: DIVALPROEX ER 500 MG TAB.ER.24H PO SCH (19:50)
--- NOTE | 2018-06-30 20:50 | PDOC ---
Exam Note: Duran Note: Please also refer to the separate dictated note~for this date of service dictated separately.~Patient seen individually. Discussed the patient with Nursing staff reviewed the chart.~Reviewed interim history and current functioning. Reviewed vital signs,~Labs/ Radiology~and current medications noted below. Continue current treatment with the changes noted in the dictated addendum note Assessment: Vital Signs: Vital Signs Date Time Temp Pulse Resp B/P (MAP) Pulse Ox O2 Delivery O2 Flow Rate FiO2 06/30/18 20:23 99 Room Air 06/30/18 16:25 98.3 101 19 173/87 (115) 06/29/18 05:25 2.0 I&O Intake and Output 06/30/18 07:00 Intake Total 1680 ml Balance 1680 ml Intake Oral 1680 ml # Voids 1 Current Medications: Meds: Current Medications Acetaminophen (Tylenol) 650 mg PRN Q6HRS PRN PO PAIN / TEMP Last administered on 06/29/18at 04:47; Start 06/26/18 at 18:00 Multi-Ingredient Ointment (Analgesic [place]) 1 adilene PRN QID PRN TP MUSCLE PAIN; Start 06/26/18 at 18:00 Al Hydroxide/Mg Hydroxide (Mylanta Plus Xs) 15 ml PRN AFTMEALHC PRN PO DYSPEPSIA; Start 06/26/18 at 18:00 Magnesium Hydroxide (Milk Of Magnesia) 2,400 mg PRN QHS PRN PO CONSTIPATION; Start 06/26/18 at 18:00 Nicotine (Nicoderm Cq 7mg) 1 patch DAILY TD Last administered on 06/30/18at 08:35 ; Start 06/26/18 at 19:30 Albuterol Sulfate (Ventolin Hfa Inhaler) 1 puff PRN Q2HR PRN IH FOR ASTHMA; Start 06/26/18 at 19:00; Status UNV Guaifenesin (Mucinex Er) 600 mg BID PO Last administered on 06/26/18at 20:20; Start 06/26/18 at 21:00; Stop 06/27/18 at 06:30; Status DC Vitamin B Complex 1 cap DAILY PO Last administered on 06/30/18at 08:31; Start at 09:00 Non-Formulary Medication (Budesonide/ Formoterol Fumarate (Symbicort 160-4.5 Mcg Inhaler)) 2 puff BID IH ; Start 06/26/18 at 21:00; Status UNV Artificial Tears (Refresh Classic) 1 drop PRN QID PRN OU DRY EYE; Start at 19:15 Thyroid ([place] Thyroid) 30 mg DAILY PO Last administered on 06/30/18 08:32; Start 06/27/18 at 09:00 Diazepam (Valium) 10 mg BID PO Last administered on 06/30/18 19:49; Start 06/26 at 21:00 Duloxetine HCl (Cymbalta) 60 mg DAILY PO Last administered on 06/30/18 08:33; Start 06/27/18 at 09:00 Melatonin 3 mg QHS PO Last administered on 06/30/18 19:46; Start 06/26/18 at 21 :00 Albuterol Sulfate (Ventolin) 2.5 mg PRN Q2HR PRN NEB SHORTNESS OF BREATH; Start 06/26/18 at 19:15 Albuterol Sulfate (Ventolin) 2.5 mg RTQID NEB Last administered on 06/30/18 20: 18; Start 06/26/18 at 20:00 Budesonide (Pulmicort) 0.5 mg RTBID NEB Last administered on 06/30/18 20:17; Start 06/26/18 at 20:00 Guaifenesin (Mucinex Er) 600 mg PRN BID PRN PO CONGESTION; Start 06/27/18 at 06 :30 Tramadol HCl (Ultram) 50 mg PRN Q6HRS PRN PO PAIN Last administered on 05:29; Start 06/27/18 at 17:15 Hydroxyzine Pamoate (Vistaril) 50 mg Q4HRS W/A PRN PO ITCHING Last administered on 06/29/18 19:44; Start 06/27/18 at 19:00 Baclofen (Lioresal) 5 mg TID PO Last administered on 06/30/18 19:46; Start 06/28 at 21:00 Duloxetine HCl (Cymbalta) 20 mg DAILY PO Last administered on 06/30/18 08:33; Start 06/29/18 at 09:00 Divalproex Sodium (Depakote Er) 500 mg QHS PO Last administered on 06/30/18at 19: 50; Start 06/30/18 at 21:00 Active Scripts Active Reported Symbicort 160-4.5 Mcg Inhaler (Budesonide/Formoterol Fumarate) 10.2 Gm Hfa.aer.ad 2 Puff IH BID Ventolin Hfa Inhaler (Albuterol Sulfate) 18 Gm Hfa.aer.ad 1 Puff IH PRN Q2HR PRN Systane 0.3-0.4% Eye Drops (Propylene Glycol/Peg 400) 15 Ml Drops 1 Drop EACHEYE QID PRN Vitamin B Complex 1 Each Capsule 1 Each PO DAILY Mucinex (Guaifenesin) 600 Mg Tablet.er 600 Mg PO BID [place] Thyroid (Thyroid,Pork) 30 Mg Tablet 30 Mg PO DAILY Melatonin 3 Mg Tablet 3 Mg PO QHS Cymbalta (Duloxetine Hcl) 60 Mg Capsule.dr 60 Mg PO DAILY Diazepam 10 Mg Tablet 10 Mg PO BID I have reviewed the current psychotropics carefully including drug interactions. Risk benefit ratio favors no change other than as noted in my dictated progress note. Diagnosis: Problems: (1) Suicide attempt (2) Tobacco abuse (3) Anxiety disorder (4) Major depressive disorder, recurrent episode (5) Impulse control disorder MICHELLE HOLLOWAY MD Jun 30, 2018 20:50
[2018-07-01] MEDS: ALBUTEROL SULFATE 2.5 MG/3 ML NEBU. NEB SCH ×4 (03:52→21:40)
[2018-07-01 05:46] VITALS: BP 160/87
[2018-07-01] MEDS: VITAMIN B COMPLEX CAPSULE. PO SCH (08:17)
[2018-07-01] MEDS: DULoxetine HCL 60 MG CAPSULE.DR PO SCH (08:17)
[2018-07-01] MEDS: BACLOFEN 10 MG TABLET PO SCH ×3 (08:18→20:53)
[2018-07-01] MEDS: NICOTINE 7MG PATCH. TD SCH (08:19)
[2018-07-01] MEDS: DULoxetine HCL 20 MG CAPSULE.DR PO SCH (08:19)
[2018-07-01] MEDS: diazePAM 5 MG TABLET PO SCH ×2 (08:22→20:53)
[2018-07-01] MEDS: THYROID,PORK 60 MG TABLET PO SCH (08:23)
--- NOTE | 2018-07-01 16:15 | RAD ---
Pelvis with right hip, 3 views, 07/01/2018: HISTORY: Fall, right hip pain No fracture or dislocation is identified. The lateral margin of the right greater trochanter is not optimally defined due to technical factors. There is mild spurring at both hip joints. Moderate degenerative change is evident in the lower lumbar spine. IMPRESSION: No acute bony abnormality is detected. Electronically signed by: Parth Dean MD (07/01/2018 4:12 PM) [facility]
[2018-07-01 16:41] VITALS: BP 167/90
[2018-07-01] MEDS: MELATONIN 3 MG TABLET PO SCH (20:53)
[2018-07-01] MEDS: DIVALPROEX ER 500 MG TAB.ER.24H PO SCH (20:53)
--- NOTE | 2018-07-01 20:58 | PDOC ---
Exam Note: Duran Note: Please also refer to the separate dictated note~for this date of service dictated separately.~Patient seen individually. Discussed the patient with Nursing staff reviewed the chart.~Reviewed interim history and current functioning. Reviewed vital signs,~Labs/ Radiology~and current medications noted below. Continue current treatment with the changes noted in the dictated addendum note Assessment: Vital Signs: Vital Signs Date Time Temp Pulse Resp B/P (MAP) Pulse Ox O2 Delivery O2 Flow Rate FiO2 07/01/18 17:05 93 Room Air 07/01/18 16:41 97.7 100 18 167/90 (115) 06/30/18 23:39 2.0 I&O Intake and Output 07/01/18 07:00 Intake Total 1440 ml Balance 1440 ml Intake Oral 1440 ml # Voids 1 Current Medications: Meds: Current Medications Acetaminophen (Tylenol) 650 mg PRN Q6HRS PRN PO PAIN / TEMP Last administered on 06/29/18 04:47; Start 06/26/18 at 18:00 Multi-Ingredient Ointment (Analgesic [place]) 1 adilene PRN QID PRN TP MUSCLE PAIN Last administered on 07/01/18 02:03; Start 06/26/18 at 18:00 Al Hydroxide/Mg Hydroxide (Mylanta Plus Xs) 15 ml PRN AFTMEALHC PRN PO DYSPEPSIA; Start 06/26/18 at 18:00 Magnesium Hydroxide (Milk Of Magnesia) 2,400 mg PRN QHS PRN PO CONSTIPATION; Start 06/26/18 at 18:00 Nicotine (Nicoderm Cq 7mg) 1 patch DAILY TD Last administered on 07/01/18at 08:19 ; Start 06/26/18 at 19:30 Albuterol Sulfate (Ventolin Hfa Inhaler) 1 puff PRN Q2HR PRN IH FOR ASTHMA; Start 06/26/18 at 19:00; Status UNV Guaifenesin (Mucinex Er) 600 mg BID PO Last administered on 06/26/18at 20:20; Start 06/26/18 at 21:00; Stop 06/27/18 at 06:30; Status DC Vitamin B Complex 1 cap DAILY PO Last administered on 07/01/18 08:17; Start at 09:00 Non-Formulary Medication (Budesonide/ Formoterol Fumarate (Symbicort 160-4.5 Mcg Inhaler)) 2 puff BID IH ; Start 06/26/18 at 21:00; Status UNV Artificial Tears (Refresh Classic) 1 drop PRN QID PRN OU DRY EYE; Start at 19:15 Thyroid ([place] Thyroid) 30 mg DAILY PO Last administered on 07/01/18 08:23; Start 06/27/18 at 09:00 Diazepam (Valium) 10 mg BID PO Last administered on 07/01/18 20:53; Start 06/26 at 21:00 Duloxetine HCl (Cymbalta) 60 mg DAILY PO Last administered on 07/01/18 08:17; Start 06/27/18 at 09:00 Melatonin 3 mg QHS PO Last administered on 07/01/18 20:53; Start 06/26/18 at 21 :00 Albuterol Sulfate (Ventolin) 2.5 mg PRN Q2HR PRN NEB SHORTNESS OF BREATH; Start 06/26/18 at 19:15 Albuterol Sulfate (Ventolin) 2.5 mg RTQID NEB Last administered on 07/01/18 17: 05; Start 06/26/18 at 20:00 Budesonide (Pulmicort) 0.5 mg RTBID NEB Last administered on 06/30/18 20:17; Start 06/26/18 at 20:00 Guaifenesin (Mucinex Er) 600 mg PRN BID PRN PO CONGESTION; Start 06/27/18 at 06 :30 Tramadol HCl (Ultram) 50 mg PRN Q6HRS PRN PO PAIN Last administered on 22:33; Start 06/27/18 at 17:15 Hydroxyzine Pamoate (Vistaril) 50 mg Q4HRS W/A PRN PO ITCHING Last administered on 06/29/18 19:44; Start 06/27/18 at 19:00 Baclofen (Lioresal) 5 mg TID PO Last administered on 07/01/18 20:53; Start 06/28 at 21:00 Duloxetine HCl (Cymbalta) 20 mg DAILY PO Last administered on 07/01/18 08:19; Start 06/29/18 at 09:00 Divalproex Sodium (Depakote Er) 500 mg QHS PO Last administered on 07/01/18at 20: 53; Start 06/30/18 at 21:00 Active Scripts Active Reported Symbicort 160-4.5 Mcg Inhaler (Budesonide/Formoterol Fumarate) 10.2 Gm Hfa.aer.ad 2 Puff IH BID Ventolin Hfa Inhaler (Albuterol Sulfate) 18 Gm Hfa.aer.ad 1 Puff IH PRN Q2HR PRN Systane 0.3-0.4% Eye Drops (Propylene Glycol/Peg 400) 15 Ml Drops 1 Drop EACHEYE QID PRN Vitamin B Complex 1 Each Capsule 1 Each PO DAILY Mucinex (Guaifenesin) 600 Mg Tablet.er 600 Mg PO BID [place] Thyroid (Thyroid,Pork) 30 Mg Tablet 30 Mg PO DAILY Melatonin 3 Mg Tablet 3 Mg PO QHS Cymbalta (Duloxetine Hcl) 60 Mg Capsule.dr 60 Mg PO DAILY Diazepam 10 Mg Tablet 10 Mg PO BID I have reviewed the current psychotropics carefully including drug interactions. Risk benefit ratio favors no change other than as noted in my dictated progress note. Diagnosis: Problems: (1) Suicide attempt (2) Tobacco abuse (3) Anxiety disorder (4) Major depressive disorder, recurrent episode (5) Impulse control disorder MICHELLE HOLLOWAY MD Jul 01, 2018 20:58
[2018-07-01] MEDS: BUDESONIDE 0.5 MG/2 ML NEBU NEB SCH (21:40)
--- NOTE | 2018-07-02 01:13 | PN ---
DATE: 06/30/2018 PSYCHIATRIC PROGRESS NOTE This is a late entry 06/30/2018 covers elements not covered in my initial note. SUBJECTIVE: I met with the patient in the evening. The patient slept 6-3/4 hours, has been somewhat sexually inappropriate, per nursing report, intrusive, manic. I met with her at her room at length, somewhat hyperverbal, manic. MENTAL STATUS EXAMINATION: Speech coherent, rapid. Abstraction fair, computation impaired, language function intact. Mood and affect somewhat grandiose, though she minimizes this. REVIEW OF SYSTEMS: No CV, , pulmonary, eye, ENT system symptoms on review. IMPRESSION: Unchanged from initial note. PLAN: Start Depakote ER 500 mg p.o. at bedtime for her bipolar manic symptoms. Check CBC, CMP, valproic acid level in 3 days. Rest unchanged from initial note. MAN Joselyn HOLLOWAY MD DR: GORDON/roddy JOB#: [id number] / [id number]
--- NOTE | 2018-07-02 01:20 | PN ---
DATE: 06/29/2018 PSYCHIATRIC PROGRESS NOTE This is a late entry for 06/29/2018, covers elements not covered in my initial note. SUBJECTIVE: I met with the patient in the evening. The patient slept 7-1/4 hours previous night. She has been going through the closet of her roommate. Per nursing report, remains hyperverbal, grandiose. Per nursing report appears manic. She is talking about knowing "everything about cancer and knowing how to cure it." REVIEW OF SYSTEMS: No CV, , pulmonary, eye, ENT system symptoms on review. MENTAL STATUS EXAM: Reasonably oriented. Speech coherent, rapid at times. Abstraction fair, computation impaired, language function intact, attention span short. Mood and affect remain somewhat labile and grandiose. LABORATORY DATA: Reviewed. IMPRESSION: Unchanged from initial note. PLAN: Cymbalta has been increased to 80 mg a day, continue, rest unchanged. Consider adding Depakote as a mood stabilizer. MICHELLE HOLLOWAY MD DR: GORDON/roddy JOB#: [id number] / [id number]
[2018-07-02] MEDS: ALBUTEROL SULFATE 2.5 MG/3 ML NEBU. NEB SCH ×4 (05:27→21:05)
[2018-07-02 06:44] VITALS: BP 128/84
[2018-07-02] MEDS: DULoxetine HCL 60 MG CAPSULE.DR PO SCH (07:42)
[2018-07-02] MEDS: NICOTINE 7MG PATCH. TD SCH (07:42)
[2018-07-02] MEDS: DULoxetine HCL 20 MG CAPSULE.DR PO SCH (07:42)
[2018-07-02] MEDS: BACLOFEN 10 MG TABLET PO SCH ×3 (07:43→20:33)
[2018-07-02] MEDS: VITAMIN B COMPLEX CAPSULE. PO SCH (07:45)
[2018-07-02] MEDS: diazePAM 5 MG TABLET PO SCH ×2 (07:45→20:33)
[2018-07-02] MEDS: THYROID,PORK 60 MG TABLET PO SCH (07:45)
[2018-07-02] MEDS: BUDESONIDE 0.5 MG/2 ML NEBU NEB SCH ×2 (11:09→21:05)
[2018-07-02] MEDS: hydrOXYzine PAMOATE 25 MG CAPSULE PO PRN ×2 (13:36→20:35)
[2018-07-02] MEDS: traMADol 50 MG TABLET PO PRN (13:36)
[2018-07-02] MEDS: risperiDONE 1 MG TABLET. PO SCH (14:31)
[2018-07-02 17:00] VITALS: BP 102/73
[2018-07-02] MEDS: MELATONIN 3 MG TABLET PO SCH (20:32)
[2018-07-02] MEDS: DIVALPROEX ER 500 MG TAB.ER.24H PO SCH (20:33)
--- NOTE | 2018-07-02 20:59 | PDOC ---
Exam Note: Duran Note: Please also refer to the separate dictated note~for this date of service dictated separately.~Patient seen individually. Discussed the patient with Nursing staff reviewed the chart.~Reviewed interim history and current functioning. Reviewed vital signs,~Labs/ Radiology~and current medications noted below. Continue current treatment with the changes noted in the dictated addendum note Assessment: Vital Signs: Vital Signs Date Time Temp Pulse Resp B/P (MAP) Pulse Ox O2 Delivery O2 Flow Rate FiO2 07/02/18 17:00 97.7 103 20 102/73 (83) 93 07/02/18 16:25 Room Air 07/02/18 06:44 4.0 I&O Intake and Output 07/02/18 07:00 Intake Total 840 ml Balance 840 ml Intake Oral 840 ml Current Medications: Meds: Current Medications Acetaminophen (Tylenol) 650 mg PRN Q6HRS PRN PO PAIN / TEMP Last administered on 06/29/18 04:47; Start 06/26/18 at 18:00 Multi-Ingredient Ointment (Analgesic [place]) 1 adilene PRN QID PRN TP MUSCLE PAIN Last administered on 07/01/18 02:03; Start 06/26/18 at 18:00 Al Hydroxide/Mg Hydroxide (Mylanta Plus Xs) 15 ml PRN AFTMEALHC PRN PO DYSPEPSIA; Start 06/26/18 at 18:00 Magnesium Hydroxide (Milk Of Magnesia) 2,400 mg PRN QHS PRN PO CONSTIPATION; Start 06/26/18 at 18:00 Nicotine (Nicoderm Cq 7mg) 1 patch DAILY TD Last administered on 07/02/18at 07:42 ; Start 06/26/18 at 19:30 Albuterol Sulfate (Ventolin Hfa Inhaler) 1 puff PRN Q2HR PRN IH FOR ASTHMA; Start 06/26/18 at 19:00; Status UNV Guaifenesin (Mucinex Er) 600 mg BID PO Last administered on 06/26/18at 20:20; Start 06/26/18 at 21:00; Stop 06/27/18 at 06:30; Status DC Vitamin B Complex 1 cap DAILY PO Last administered on 07/02/18 07:45; Start at 09:00 Non-Formulary Medication (Budesonide/ Formoterol Fumarate (Symbicort 160-4.5 Mcg Inhaler)) 2 puff BID IH ; Start 06/26/18 at 21:00; Status UNV Artificial Tears (Refresh Classic) 1 drop PRN QID PRN OU DRY EYE; Start at 19:15 Thyroid ([place] Thyroid) 30 mg DAILY PO Last administered on 07/02/18 07:45; Start 06/27/18 at 09:00 Diazepam (Valium) 10 mg BID PO Last administered on 07/02/18 20:33; Start 06/26 at 21:00 Duloxetine HCl (Cymbalta) 60 mg DAILY PO Last administered on 07/02/18 07:42; Start 06/27/18 at 09:00; Stop 07/02/18 at 13:32; Status DC Melatonin 3 mg QHS PO Last administered on 07/02/18 20:32; Start 06/26/18 at 21 :00 Albuterol Sulfate (Ventolin) 2.5 mg PRN Q2HR PRN NEB SHORTNESS OF BREATH; Start 06/26/18 at 19:15 Albuterol Sulfate (Ventolin) 2.5 mg RTQID NEB Last administered on 07/02/18 16: 25; Start 06/26/18 at 20:00 Budesonide (Pulmicort) 0.5 mg RTBID NEB Last administered on 07/02/18 11:09; Start 06/26/18 at 20:00 Guaifenesin (Mucinex Er) 600 mg PRN BID PRN PO CONGESTION; Start 06/27/18 at 06 :30 Tramadol HCl (Ultram) 50 mg PRN Q6HRS PRN PO PAIN Last administered on 13:36; Start 06/27/18 at 17:15 Hydroxyzine Pamoate (Vistaril) 50 mg Q4HRS W/A PRN PO ITCHING Last administered on 07/02/18 20:35; Start 06/27/18 at 19:00 Baclofen (Lioresal) 5 mg TID PO Last administered on 07/02/18 20:33; Start 06/28 at 21:00 Duloxetine HCl (Cymbalta) 20 mg DAILY PO Last administered on 07/02/18 07:42; Start 06/29/18 at 09:00 Divalproex Sodium (Depakote Er) 500 mg QHS PO Last administered on 07/02/18at 20: 33; Start 06/30/18 at 21:00 Duloxetine HCl (Cymbalta) 30 mg DAILY PO ; Start 07/03/18 at 09:00 Risperidone (RisperDAL) 1 mg DAILY PO Last administered on 07/02/18at 14:31; Start 07/02/18 at 14:00 Active Scripts Active Reported Symbicort 160-4.5 Mcg Inhaler (Budesonide/Formoterol Fumarate) 10.2 Gm Hfa.aer.ad 2 Puff IH BID Ventolin Hfa Inhaler (Albuterol Sulfate) 18 Gm Hfa.aer.ad 1 Puff IH PRN Q2HR PRN Systane 0.3-0.4% Eye Drops (Propylene Glycol/Peg 400) 15 Ml Drops 1 Drop EACHEYE QID PRN Vitamin B Complex 1 Each Capsule 1 Each PO DAILY Mucinex (Guaifenesin) 600 Mg Tablet.er 600 Mg PO BID [place] Thyroid (Thyroid,Pork) 30 Mg Tablet 30 Mg PO DAILY Melatonin 3 Mg Tablet 3 Mg PO QHS Cymbalta (Duloxetine Hcl) 60 Mg Capsule.dr 60 Mg PO DAILY Diazepam 10 Mg Tablet 10 Mg PO BID I have reviewed the current psychotropics carefully including drug interactions. Risk benefit ratio favors no change other than as noted in my dictated progress note. Diagnosis: Problems: (1) Suicide attempt (2) Tobacco abuse (3) Anxiety disorder (4) Major depressive disorder, recurrent episode (5) Impulse control disorder MICHELLE HOLLOWAY MD Jul 02, 2018 20:59
--- NOTE | 2018-07-02 22:59 | PN ---
DATE: 07/01/2018 PSYCHIATRIC PROGRESS NOTE This is a late entry 07/01/2018 covers elements not covered in my initial note. SUBJECTIVE: I met with the patient in the evening. The patient slept 5 hours previous night. Previous night, she accused male staff member of being sexually inappropriate to her. Staff are addressing this. She is somewhat possessive of the television around her, somewhat intrusive. No suicidal or homicidal ideation. REVIEW OF SYSTEMS: No CV, , pulmonary, eye system symptoms on review. Gait unsteady with walker. MENTAL STATUS EXAM: Reasonably oriented. Speech coherent, somewhat pressured at times. Abstraction fair, computation reasonable, language function intact, somewhat hyperverbal at times. No suicidal or homicidal ideation. Attention span short. Language function intact. LABORATORY DATA: Reviewed. IMPRESSION: Probable bipolar 1 disorder, mixed, in partial remission; anxiety disorder, unspecified; personality disorder, unspecified. PLAN: Continue psychotropics from initial note. May adjust Depakote to reach therapeutic level. If manic symptoms are evident, we will reduce the Cymbalta and consider adding Risperdal or Seroquel if needed for mood stabilization. MAN Joselyn HOLLOWAY MD DR: GORDON/roddy JOB#: [id number] / [id number]
[2018-07-03] MEDS: ALBUTEROL SULFATE 2.5 MG/3 ML NEBU. NEB SCH ×4 (05:39→21:27)
[2018-07-03 06:22] VITALS: BP 124/87
[2018-07-03 06:35] LABS: BASO % 0 % (0-3); EOS # 0.2 x10^3/uL (0.0-0.7); EOS % 3 % (0-3); HEMATOCRIT 38.2 % (36.0-47.0); HEMOGLOBIN 12.9 g/dL (12.0-15.5); LYMPH # 2.2 x10^3/uL (1.0-4.8); LYMPH % 28 % (24-48); MEAN CORPUSCULAR HEMOGLOBIN 31 pg (25-35); MEAN CORPUSCULAR HGB CONC 34 g/dL (31-37); MEAN CORPUSCULAR VOLUME 90 fL (79-100); MONO % 13 % (0-9); NEUT # 4.5 x10^3uL (1.8-7.7); NEUT % 57 % (31-73); PLATELET COUNT 225 x10^3/uL (140-400); RED BLOOD COUNT 4.22 x10^6/uL (3.50-5.40); RED CELL DISTRIBUTION WIDTH 14.1 % (11.5-14.5); WHITE BLOOD COUNT 7.9 x10^3/uL (4.0-11.0)
[2018-07-03 06:53] LABS: ALBUMIN 3.4 g/dL (3.4-5.0); ALBUMIN/GLOBULIN RATIO 0.9 (1.0-1.7); ALK PHOS 57 U/L (46-116); ALT (SGPT) 28 U/L (14-59); ANION GAP 8 (6-14); AST (SGOT) 22 U/L (15-37); BLOOD UREA NITROGEN 16 mg/dL (7-20); BUN/CREATININE RATIO 20 (6-20); CALCIUM 9.7 mg/dL (8.5-10.1); CARBON DIOXIDE 30 mmol/L (21-32); CHLORIDE 102 mmol/L (98-107); CREATININE 0.8 mg/dL (0.6-1.0); GFR 71.3; GLUCOSE 93 mg/dL (70-99); SODIUM 140 mmol/L (136-145); TOTAL BILIRUBIN 0.4 mg/dL (0.2-1.0); TOTAL PROTEIN 7.2 g/dL (6.4-8.2); VAL ACID 59 mcg/mL (50-100)
[2018-07-03] MEDS ORDERED: risperiDONE 1 MG TABLET. PO SCH (09:00)
[2018-07-03] MEDS: BUDESONIDE 0.5 MG/2 ML NEBU NEB SCH ×2 (09:27→21:27)
[2018-07-03] MEDS: NICOTINE 7MG PATCH. TD SCH (10:13)
[2018-07-03] MEDS: DULoxetine HCL 20 MG CAPSULE.DR PO SCH ×2 (10:13→10:29)
[2018-07-03] MEDS: VITAMIN B COMPLEX CAPSULE. PO SCH (10:14)
[2018-07-03] MEDS: BACLOFEN 10 MG TABLET PO SCH ×3 (10:14→20:57)
[2018-07-03] MEDS: risperiDONE 1 MG TABLET. PO SCH (10:15)
[2018-07-03] MEDS: THYROID,PORK 60 MG TABLET PO SCH (10:16)
[2018-07-03] MEDS: diazePAM 5 MG TABLET PO SCH ×2 (10:18→20:57)
[2018-07-03] MEDS: DULoxetine HCL 30 MG CAPSULE.DR PO SCH (10:30)
[2018-07-03 16:34] VITALS: BP 123/78
[2018-07-03] MEDS: MELATONIN 3 MG TABLET PO SCH (20:57)
[2018-07-03] MEDS: DIVALPROEX ER 500 MG TAB.ER.24H PO SCH (20:57)
--- NOTE | 2018-07-03 21:01 | PDOC ---
Exam Note: Duran Note: Please also refer to the separate dictated note~for this date of service dictated separately.~Patient seen individually. Discussed the patient with Nursing staff reviewed the chart.~Reviewed interim history and current functioning. Reviewed vital signs,~Labs/ Radiology~and current medications noted below. Continue current treatment with the changes noted in the dictated addendum note Assessment: Vital Signs: Vital Signs Date Time Temp Pulse Resp B/P (MAP) Pulse Ox O2 Delivery O2 Flow Rate FiO2 07/03/18 16:34 97.1 104 18 123/78 (93) 93 Room Air 07/03/18 09:29 2.0 I&O Intake and Output 07/03/18 07:00 Intake Total 1440 ml Balance 1440 ml Intake Oral 1440 ml Labs: Laboratory Tests Test 07/03/18 06:24 White Blood Count 7.9 x10^3/uL (4.0-11.0) Red Blood Count 4.22 x10^6/uL (3.50-5.40) Hemoglobin 12.9 g/dL (12.0-15.5) Hematocrit 38.2 % (36.0-47.0) Mean Corpuscular Volume 90 fL (79-100) Mean Corpuscular Hemoglobin 31 pg (25-35) Mean Corpuscular Hemoglobin Concent 34 g/dL (31-37) Red Cell Distribution Width 14.1 % (11.5-14.5) Platelet Count 225 x10^3/uL (140-400) Neutrophils (%) (Auto) 57 % (31-73) Lymphocytes (%) (Auto) 28 % (24-48) Monocytes (%) (Auto) 13 % (0-9) H Eosinophils (%) (Auto) 3 % (0-3) Basophils (%) (Auto) 0 % (0-3) Neutrophils # (Auto) 4.5 x10^3uL (1.8-7.7) Lymphocytes # (Auto) 2.2 x10^3/uL (1.0-4.8) Monocytes # (Auto) 1.0 x10^3/uL (0.0-1.1) Eosinophils # (Auto) 0.2 x10^3/uL (0.0-0.7) Basophils # (Auto) 0.0 x10^3/uL (0.0-0.2) Sodium Level 140 mmol/L (136-145) Potassium Level 4.0 mmol/L (3.5-5.1) Chloride Level 102 mmol/L (98-107) Carbon Dioxide Level 30 mmol/L (21-32) Anion Gap 8 (6-14) Blood Urea Nitrogen 16 mg/dL (7-20) Creatinine 0.8 mg/dL (0.6-1.0) Estimated GFR (Cockcroft-Gault) 71.3 BUN/Creatinine Ratio 20 (6-20) Glucose Level 93 mg/dL (70-99) Calcium Level 9.7 mg/dL (8.5-10.1) Total Bilirubin 0.4 mg/dL (0.2-1.0) Aspartate Amino Transferase (AST) 22 U/L (15-37) Alanine Aminotransferase (ALT) 28 U/L (14-59) Alkaline Phosphatase 57 U/L (46-116) Total Protein 7.2 g/dL (6.4-8.2) Albumin 3.4 g/dL (3.4-5.0) Albumin/Globulin Ratio 0.9 (1.0-1.7) L Valproic Acid Level 59 mcg/mL (50-100) Valproic Acid Last Dose Date 07/02/2018 Valproic Acid Last Dose Time 2100 Current Medications: Meds: Current Medications Acetaminophen (Tylenol) 650 mg PRN Q6HRS PRN PO PAIN / TEMP Last administered on 06/29/18at 04:47; Start 06/26/18 at 18:00 Multi-Ingredient Ointment (Analgesic [place]) 1 adilene PRN QID PRN TP MUSCLE PAIN Last administered on 07/01/18at 02:03; Start 06/26/18 at 18:00 Al Hydroxide/Mg Hydroxide (Mylanta Plus Xs) 15 ml PRN AFTMEALHC PRN PO DYSPEPSIA; Start 06/26/18 at 18:00 Magnesium Hydroxide (Milk Of Magnesia) 2,400 mg PRN QHS PRN PO CONSTIPATION; Start 06/26/18 at 18:00 Nicotine (Nicoderm Cq 7mg) 1 patch DAILY TD Last administered on 07/03/18at 10:13 ; Start 06/26/18 at 19:30 Albuterol Sulfate (Ventolin Hfa Inhaler) 1 puff PRN Q2HR PRN IH FOR ASTHMA; Start 06/26/18 at 19:00; Status UNV Guaifenesin (Mucinex Er) 600 mg BID PO Last administered on 06/26/18at 20:20; Start 06/26/18 at 21:00; Stop 06/27/18 at 06:30; Status DC Vitamin B Complex 1 cap DAILY PO Last administered on 07/03/18at 10:14; Start at 09:00 Non-Formulary Medication (Budesonide/ Formoterol Fumarate (Symbicort 160-4.5 Mcg Inhaler)) 2 puff BID IH ; Start 06/26/18 at 21:00; Status UNV Artificial Tears (Refresh Classic) 1 drop PRN QID PRN OU DRY EYE; Start at 19:15 Thyroid ([place] Thyroid) 30 mg DAILY PO Last administered on 07/03/18at 10:16; Start 06/27/18 at 09:00 Diazepam (Valium) 10 mg BID PO Last administered on 07/03/18at 20:57; Start 06/26 at 21:00 Duloxetine HCl (Cymbalta) 60 mg DAILY PO Last administered on 07/02/18at 07:42; Start 06/27/18 at 09:00; Stop 07/02/18 at 13:32; Status DC Melatonin 3 mg QHS PO Last administered on 07/03/18at 20:57; Start 06/26/18 at 21 :00 Albuterol Sulfate (Ventolin) 2.5 mg PRN Q2HR PRN NEB SHORTNESS OF BREATH; Start 06/26/18 at 19:15 Albuterol Sulfate (Ventolin) 2.5 mg RTQID NEB Last administered on 07/03/18 16: 07; Start 06/26/18 at 20:00 Budesonide (Pulmicort) 0.5 mg RTBID NEB Last administered on 07/03/18 09:27; Start 06/26/18 at 20:00 Guaifenesin (Mucinex Er) 600 mg PRN BID PRN PO CONGESTION; Start 06/27/18 at 06 :30 Tramadol HCl (Ultram) 50 mg PRN Q6HRS PRN PO PAIN Last administered on at 13:36; Start 06/27/18 at 17:15 Hydroxyzine Pamoate (Vistaril) 50 mg Q4HRS W/A PRN PO ITCHING Last administered on 07/02/18 20:35; Start 06/27/18 at 19:00 Baclofen (Lioresal) 5 mg TID PO Last administered on 07/03/18at 20:57; Start 06/28 at 21:00 Duloxetine HCl (Cymbalta) 20 mg DAILY PO Last administered on 07/03/18at 10:29; Start 06/29/18 at 09:00 Divalproex Sodium (Depakote Er) 500 mg QHS PO Last administered on 07/03/18 20: 57; Start 06/30/18 at 21:00 Duloxetine HCl (Cymbalta) 30 mg DAILY PO Last administered on 07/03/18 10:30; Start 07/03/18 at 09:00 Risperidone (RisperDAL) 1 mg DAILY PO Last administered on 07/03/18 10:15; Start 07/02/18 at 14:00 Risperidone (RisperDAL) 1 mg DAILY PO ; Start 07/03/18 at 09:00 Active Scripts Active Reported Symbicort 160-4.5 Mcg Inhaler (Budesonide/Formoterol Fumarate) 10.2 Gm Hfa.aer.ad 2 Puff IH BID Ventolin Hfa Inhaler (Albuterol Sulfate) 18 Gm Hfa.aer.ad 1 Puff IH PRN Q2HR PRN Systane 0.3-0.4% Eye Drops (Propylene Glycol/Peg 400) 15 Ml Drops 1 Drop EACHEYE QID PRN Vitamin B Complex 1 Each Capsule 1 Each PO DAILY Mucinex (Guaifenesin) 600 Mg Tablet.er 600 Mg PO BID [place] Thyroid (Thyroid,Pork) 30 Mg Tablet 30 Mg PO DAILY Melatonin 3 Mg Tablet 3 Mg PO QHS Cymbalta (Duloxetine Hcl) 60 Mg Capsule.dr 60 Mg PO DAILY Diazepam 10 Mg Tablet 10 Mg PO BID I have reviewed the current psychotropics carefully including drug interactions. Risk benefit ratio favors no change other than as noted in my dictated progress note. Diagnosis: Problems: (1) Suicide attempt (2) Tobacco abuse (3) Anxiety disorder (4) Major depressive disorder, recurrent episode (5) Impulse control disorder MICHELLE HOLLOWAY MD Jul 03, 2018 21:01
[2018-07-04] MEDS: ALBUTEROL SULFATE 2.5 MG/3 ML NEBU. NEB SCH ×4 (05:34→19:52)
[2018-07-04 07:05] VITALS: BP 130/83
[2018-07-04] MEDS: NICOTINE 7MG PATCH. TD SCH (07:54)
[2018-07-04] MEDS: VITAMIN B COMPLEX CAPSULE. PO SCH (07:54)
[2018-07-04] MEDS: THYROID,PORK 60 MG TABLET PO SCH (07:55)
[2018-07-04] MEDS: DULoxetine HCL 20 MG CAPSULE.DR PO SCH (07:55)
[2018-07-04] MEDS: BACLOFEN 10 MG TABLET PO SCH ×3 (07:56→19:49)
[2018-07-04] MEDS: diazePAM 5 MG TABLET PO SCH ×2 (07:59→19:49)
[2018-07-04] MEDS: DULoxetine HCL 30 MG CAPSULE.DR PO SCH (08:01)
[2018-07-04] MEDS: risperiDONE 1 MG TABLET. PO SCH (08:16)
[2018-07-04] MEDS: BUDESONIDE 0.5 MG/2 ML NEBU NEB SCH ×2 (10:40→19:52)
[2018-07-04 16:04] VITALS: BP 117/62
[2018-07-04] MEDS: MELATONIN 3 MG TABLET PO SCH (19:48)
[2018-07-04] MEDS: DIVALPROEX ER 500 MG TAB.ER.24H PO SCH (19:48)
--- NOTE | 2018-07-04 20:50 | PDOC ---
Exam Note: Duran Note: Please also refer to the separate dictated note~for this date of service dictated separately.~Patient seen individually. Discussed the patient with Nursing staff reviewed the chart.~Reviewed interim history and current functioning. Reviewed vital signs,~Labs/ Radiology~and current medications noted below. Continue current treatment with the changes noted in the dictated addendum note Assessment: Vital Signs: Vital Signs Date Time Temp Pulse Resp B/P (MAP) Pulse Ox O2 Delivery O2 Flow Rate FiO2 07/04/18 19:55 Room Air 07/04/18 16:17 97 2.0 07/04/18 16:04 97.3 87 18 117/62 (80) I&O Intake and Output 07/04/18 07:00 Intake Total 1200 ml Balance 1200 ml Intake Oral 1200 ml # Voids 2 # Bowel Movements 1 Current Medications: Meds: Current Medications Acetaminophen (Tylenol) 650 mg PRN Q6HRS PRN PO PAIN / TEMP Last administered on 06/29/18 04:47; Start 06/26/18 at 18:00 Multi-Ingredient Ointment (Analgesic [place]) 1 adilene PRN QID PRN TP MUSCLE PAIN Last administered on 07/01/18 02:03; Start 06/26/18 at 18:00 Al Hydroxide/Mg Hydroxide (Mylanta Plus Xs) 15 ml PRN AFTMEALHC PRN PO DYSPEPSIA; Start 06/26/18 at 18:00 Magnesium Hydroxide (Milk Of Magnesia) 2,400 mg PRN QHS PRN PO CONSTIPATION; Start 06/26/18 at 18:00 Nicotine (Nicoderm Cq 7mg) 1 patch DAILY TD Last administered on 07/04/18at 07:54 ; Start 06/26/18 at 19:30 Albuterol Sulfate (Ventolin Hfa Inhaler) 1 puff PRN Q2HR PRN IH FOR ASTHMA; Start 06/26/18 at 19:00; Status UNV Guaifenesin (Mucinex Er) 600 mg BID PO Last administered on 06/26/18at 20:20; Start 06/26/18 at 21:00; Stop 06/27/18 at 06:30; Status DC Vitamin B Complex 1 cap DAILY PO Last administered on 07/04/18at 07:54; Start at 09:00 Non-Formulary Medication (Budesonide/ Formoterol Fumarate (Symbicort 160-4.5 Mcg Inhaler)) 2 puff BID IH ; Start 06/26/18 at 21:00; Status UNV Artificial Tears (Refresh Classic) 1 drop PRN QID PRN OU DRY EYE; Start at 19:15 Thyroid ([place] Thyroid) 30 mg DAILY PO Last administered on 07/04/18 07:55; Start 06/27/18 at 09:00 Diazepam (Valium) 10 mg BID PO Last administered on 07/04/18 19:49; Start 06/26 at 21:00 Duloxetine HCl (Cymbalta) 60 mg DAILY PO Last administered on 07/02/18 07:42; Start 06/27/18 at 09:00; Stop 07/02/18 at 13:32; Status DC Melatonin 3 mg QHS PO Last administered on 07/04/18 19:48; Start 06/26/18 at 21 :00 Albuterol Sulfate (Ventolin) 2.5 mg PRN Q2HR PRN NEB SHORTNESS OF BREATH; Start 06/26/18 at 19:15 Albuterol Sulfate (Ventolin) 2.5 mg RTQID NEB Last administered on 07/04/18 19: 52; Start 06/26/18 at 20:00 Budesonide (Pulmicort) 0.5 mg RTBID NEB Last administered on 07/04/18 19:52; Start 06/26/18 at 20:00 Guaifenesin (Mucinex Er) 600 mg PRN BID PRN PO CONGESTION; Start 06/27/18 at 06 :30 Tramadol HCl (Ultram) 50 mg PRN Q6HRS PRN PO PAIN Last administered on 13:36; Start 06/27/18 at 17:15 Hydroxyzine Pamoate (Vistaril) 50 mg Q4HRS W/A PRN PO ITCHING Last administered on 07/02/18 20:35; Start 06/27/18 at 19:00 Baclofen (Lioresal) 5 mg TID PO Last administered on 07/04/18 19:49; Start 06/28 at 21:00 Duloxetine HCl (Cymbalta) 20 mg DAILY PO Last administered on 9/7/18at 07:55; Start 06/29/18 at 09:00 Divalproex Sodium (Depakote Er) 500 mg QHS PO Last administered on 07/04/18at 19: 48; Start 06/30/18 at 21:00 Duloxetine HCl (Cymbalta) 30 mg DAILY PO Last administered on 07/04/18at 08:01; Start 07/03/18 at 09:00 Risperidone (RisperDAL) 1 mg DAILY PO Last administered on 07/03/18at 10:15; Start 07/02/18 at 14:00; Stop 07/04/18 at 08:05; Status DC Risperidone (RisperDAL) 1 mg DAILY PO ; Start 07/03/18 at 09:00; Stop 07/04/18 at 08:06; Status DC Risperidone (RisperDAL) 1.5 mg DAILY PO Last administered on 07/04/18at 08:16; Start 07/04/18 at 09:00 Active Scripts Active Reported Symbicort 160-4.5 Mcg Inhaler (Budesonide/Formoterol Fumarate) 10.2 Gm Hfa.aer.ad 2 Puff IH BID Ventolin Hfa Inhaler (Albuterol Sulfate) 18 Gm Hfa.aer.ad 1 Puff IH PRN Q2HR PRN Systane 0.3-0.4% Eye Drops (Propylene Glycol/Peg 400) 15 Ml Drops 1 Drop EACHEYE QID PRN Vitamin B Complex 1 Each Capsule 1 Each PO DAILY Mucinex (Guaifenesin) 600 Mg Tablet.er 600 Mg PO BID [place] Thyroid (Thyroid,Pork) 30 Mg Tablet 30 Mg PO DAILY Melatonin 3 Mg Tablet 3 Mg PO QHS Cymbalta (Duloxetine Hcl) 60 Mg Capsule. 60 Mg PO DAILY Diazepam 10 Mg Tablet 10 Mg PO BID I have reviewed the current psychotropics carefully including drug interactions. Risk benefit ratio favors no change other than as noted in my dictated progress note. Diagnosis: Problems: (1) Suicide attempt (2) Tobacco abuse (3) Anxiety disorder (4) Major depressive disorder, recurrent episode (5) Impulse control disorder MICHELLE HOLLOWAY MD Jul 04, 2018 20:50
--- NOTE | 2018-07-04 23:01 | PN ---
DATE: 07/02/2018 This late entry 07/02/2018 covers elements not covered in my initial note. SUBJECTIVE: I met with the patient at length on the evening of 07/02/2018 and discussed with [facility] social service staff and nursing staff on several occasions during the day as the patient was demanding to leave. Discussed with Giuliano Hope RN. The patient was wanting to leave AMA. We contacted her outpatient case manager who would not be able to arrange her placement in the facility if she left AMA. Finally, Giuliano Hope RN talked to the patient, she was agreeable to continuing hospitalization until her psychotropics were stabilized. The patient has been somewhat more verbal. Has some flight of ideas and tangentiality. Slept 5 hours previous evening. REVIEW OF SYSTEMS: Some shortness of breath. No CV, , pulmonary, eye system symptoms on review. MENTAL STATUS EXAM: Oriented to herself and situation. Speech coherent, has some latency, has some pressure at times. Abstraction fair, computation impaired, language function intact. Attention span short. No active suicidal ideation. LABORATORY DATA: Reviewed. IMPRESSION: Bipolar 1 disorder, mixed with psychotic features; anxiety disorder, unspecified. PLAN: Reduce Cymbalta from 80 mg a day to 50 mg a day given her hypomanic symptoms. Add Risperdal 1 mg daily for her psychotic symptoms. Maintain Valium, hydroxyzine along with Depakote ER 500 mg p.o. at bedtime. Check labs level 07/03/2018. Adjust as clinically indicated. MICHELLE HOLLOWAY MD DR: GORDON/roddy JOB#: [id number] / [id number]
--- NOTE | 2018-07-04 23:03 | PN ---
DATE: 07/03/2018 PSYCHIATRIC PROGRESS NOTE This is a late entry 07/03/2018 covers elements not covered in my initial note. SUBJECTIVE: I met with the patient in the evening. The patient was staffed at a treatment team meeting with the entire team in the morning. She is sleeping well, appetite is fair. On 07/02/2018, after multiple discussions with staff and social service staff and nursing staff given her paranoia and manic symptoms, we had reduced the Cymbalta to 50 mg a day, started Risperdal 1 mg daily. Her Depakote is being adjusted. Repeat labs on 07/03/2018. Valproic acid level is therapeutic at 59. We will repeat it on Saturday. REVIEW OF SYSTEMS: No CV, , pulmonary, eye system symptoms on review. Shortness of breath. MENTAL STATUS EXAM: Reasonably oriented. Speech coherent, some pressure at times. Abstraction fair, computation impaired, language function intact, attention span short. Mood and affect still somewhat grandiose better than before. LABORATORY DATA: Reviewed. IMPRESSION: Unchanged from initial note. PLAN: Continue psychotropics from initial note, may need to increase Risperdal if psychotic symptoms persist. MAN Joselyn HOLLOWAY MD DR: GORDON/roddy JOB#: [id number] / [id number]
[2018-07-04] MEDS: hydrOXYzine PAMOATE 25 MG CAPSULE PO PRN (23:34)
[2018-07-05] MEDS: ALBUTEROL SULFATE 2.5 MG/3 ML NEBU. NEB SCH ×4 (05:09→20:05)
[2018-07-05] MEDS: BUDESONIDE 0.5 MG/2 ML NEBU NEB SCH ×2 (05:09→20:05)
[2018-07-05 06:06] VITALS: BP 102/65
[2018-07-05] MEDS: VITAMIN B COMPLEX CAPSULE. PO SCH (08:59)
[2018-07-05] MEDS: DULoxetine HCL 20 MG CAPSULE.DR PO SCH (08:59)
[2018-07-05] MEDS: BACLOFEN 10 MG TABLET PO SCH ×3 (09:00→20:19)
[2018-07-05] MEDS: hydrOXYzine PAMOATE 25 MG CAPSULE PO PRN (09:00)
[2018-07-05] MEDS: DULoxetine HCL 30 MG CAPSULE.DR PO SCH (09:01)
[2018-07-05] MEDS: risperiDONE 1 MG TABLET. PO SCH (09:01)
[2018-07-05] MEDS: NICOTINE 7MG PATCH. TD SCH (09:02)
[2018-07-05] MEDS: diazePAM 5 MG TABLET PO SCH ×2 (09:03→20:18)
[2018-07-05] MEDS: THYROID,PORK 60 MG TABLET PO SCH (09:05)
[2018-07-05 16:15] VITALS: BP 156/89
[2018-07-05] MEDS: MELATONIN 3 MG TABLET PO SCH (20:18)
[2018-07-05] MEDS: DIVALPROEX ER 500 MG TAB.ER.24H PO SCH (20:18)
--- NOTE | 2018-07-05 23:19 | PDOC ---
Exam Note: Duran Note: Please also refer to the separate dictated note~for this date of service dictated separately.~Patient seen individually. Discussed the patient with Nursing staff reviewed the chart.~Reviewed interim history and current functioning. Reviewed vital signs,~Labs/ Radiology~and current medications noted below. Continue current treatment with the changes noted in the dictated addendum note Assessment: Vital Signs: Vital Signs Date Time Temp Pulse Resp B/P (MAP) Pulse Ox O2 Delivery O2 Flow Rate FiO2 07/05/18 20:05 95 Room Air 07/05/18 16:15 97.3 81 20 156/89 (111) 07/05/18 05:11 2.0 I&O Intake and Output 07/05/18 07:00 Intake Total 1440 ml Balance 1440 ml Intake Oral 1440 ml Current Medications: Meds: Current Medications Acetaminophen (Tylenol) 650 mg PRN Q6HRS PRN PO PAIN / TEMP Last administered on 06/29/18 04:47; Start 06/26/18 at 18:00 Multi-Ingredient Ointment (Analgesic [place]) 1 adilene PRN QID PRN TP MUSCLE PAIN Last administered on 07/01/18 02:03; Start 06/26/18 at 18:00 Al Hydroxide/Mg Hydroxide (Mylanta Plus Xs) 15 ml PRN AFTMEALHC PRN PO DYSPEPSIA; Start 06/26/18 at 18:00 Magnesium Hydroxide (Milk Of Magnesia) 2,400 mg PRN QHS PRN PO CONSTIPATION; Start 06/26/18 at 18:00 Nicotine (Nicoderm Cq 7mg) 1 patch DAILY TD Last administered on 07/05/18at 09:02 ; Start 06/26/18 at 19:30 Albuterol Sulfate (Ventolin Hfa Inhaler) 1 puff PRN Q2HR PRN IH FOR ASTHMA; Start 06/26/18 at 19:00; Status UNV Guaifenesin (Mucinex Er) 600 mg BID PO Last administered on 06/26/18at 20:20; Start 06/26/18 at 21:00; Stop 06/27/18 at 06:30; Status DC Vitamin B Complex 1 cap DAILY PO Last administered on 07/05/18at 08:59; Start at 09:00 Non-Formulary Medication (Budesonide/ Formoterol Fumarate (Symbicort 160-4.5 Mcg Inhaler)) 2 puff BID IH ; Start 06/26/18 at 21:00; Status UNV Artificial Tears (Refresh Classic) 1 drop PRN QID PRN OU DRY EYE; Start at 19:15 Thyroid ([place] Thyroid) 30 mg DAILY PO Last administered on 07/05/18 09:05; Start 06/27/18 at 09:00 Diazepam (Valium) 10 mg BID PO Last administered on 07/05/18 20:18; Start 06/26 at 21:00 Duloxetine HCl (Cymbalta) 60 mg DAILY PO Last administered on 07/02/18 07:42; Start 06/27/18 at 09:00; Stop 07/02/18 at 13:32; Status DC Melatonin 3 mg QHS PO Last administered on 07/05/18 20:18; Start 06/26/18 at 21 :00 Albuterol Sulfate (Ventolin) 2.5 mg PRN Q2HR PRN NEB SHORTNESS OF BREATH; Start 06/26/18 at 19:15 Albuterol Sulfate (Ventolin) 2.5 mg RTQID NEB Last administered on 07/05/18 20: 05; Start 06/26/18 at 20:00 Budesonide (Pulmicort) 0.5 mg RTBID NEB Last administered on 07/05/18 20:05; Start 06/26/18 at 20:00 Guaifenesin (Mucinex Er) 600 mg PRN BID PRN PO CONGESTION; Start 06/27/18 at 06 :30 Tramadol HCl (Ultram) 50 mg PRN Q6HRS PRN PO PAIN Last administered on 13:36; Start 06/27/18 at 17:15 Hydroxyzine Pamoate (Vistaril) 50 mg Q4HRS W/A PRN PO ITCHING Last administered on 07/05/18 09:00; Start 06/27/18 at 19:00 Baclofen (Lioresal) 5 mg TID PO Last administered on 07/05/18 20:19; Start 06/28 at 21:00 Duloxetine HCl (Cymbalta) 20 mg DAILY PO Last administered on 07/05/18 08:59; Start 06/29/18 at 09:00 Divalproex Sodium (Depakote Er) 500 mg QHS PO Last administered on 07/05/18at 20: 18; Start 06/30/18 at 21:00 Duloxetine HCl (Cymbalta) 30 mg DAILY PO Last administered on 07/05/18at 09:01; Start 07/03/18 at 09:00 Risperidone (RisperDAL) 1 mg DAILY PO Last administered on 07/03/18at 10:15; Start 07/02/18 at 14:00; Stop 07/04/18 at 08:05; Status DC Risperidone (RisperDAL) 1 mg DAILY PO ; Start 07/03/18 at 09:00; Stop 07/04/18 at 08:06; Status DC Risperidone (RisperDAL) 1.5 mg DAILY PO Last administered on 07/05/18at 09:01; Start 07/04/18 at 09:00 Active Scripts Active Reported Symbicort 160-4.5 Mcg Inhaler (Budesonide/Formoterol Fumarate) 10.2 Gm Hfa.aer.ad 2 Puff IH BID Ventolin Hfa Inhaler (Albuterol Sulfate) 18 Gm Hfa.aer.ad 1 Puff IH PRN Q2HR PRN Systane 0.3-0.4% Eye Drops (Propylene Glycol/Peg 400) 15 Ml Drops 1 Drop EACHEYE QID PRN Vitamin B Complex 1 Each Capsule 1 Each PO DAILY Mucinex (Guaifenesin) 600 Mg Tablet.er 600 Mg PO BID [place] Thyroid (Thyroid,Pork) 30 Mg Tablet 30 Mg PO DAILY Melatonin 3 Mg Tablet 3 Mg PO QHS Cymbalta (Duloxetine Hcl) 60 Mg Capsule. 60 Mg PO DAILY Diazepam 10 Mg Tablet 10 Mg PO BID I have reviewed the current psychotropics carefully including drug interactions. Risk benefit ratio favors no change other than as noted in my dictated progress note. Diagnosis: Problems: (1) Suicide attempt (2) Tobacco abuse (3) Anxiety disorder (4) Major depressive disorder, recurrent episode (5) Impulse control disorder MICHELLE HOLLOWAY MD Jul 05, 2018 23:19
[2018-07-06] MEDS: hydrOXYzine PAMOATE 25 MG CAPSULE PO PRN ×2 (01:37→20:48)
[2018-07-06] MEDS: ALBUTEROL SULFATE 2.5 MG/3 ML NEBU. NEB SCH ×4 (04:56→20:15)
[2018-07-06 06:12] VITALS: BP 107/70
[2018-07-06] MEDS: DULoxetine HCL 30 MG CAPSULE.DR PO SCH (08:02)
[2018-07-06] MEDS: THYROID,PORK 60 MG TABLET PO SCH (08:03)
[2018-07-06] MEDS: risperiDONE 1 MG TABLET. PO SCH (08:03)
[2018-07-06] MEDS: DULoxetine HCL 20 MG CAPSULE.DR PO SCH (08:03)
[2018-07-06] MEDS: VITAMIN B COMPLEX CAPSULE. PO SCH (08:03)
[2018-07-06] MEDS: NICOTINE 7MG PATCH. TD SCH (08:04)
[2018-07-06] MEDS: BACLOFEN 10 MG TABLET PO SCH ×3 (08:04→19:28)
[2018-07-06] MEDS: diazePAM 5 MG TABLET PO SCH ×2 (08:08→19:30)
[2018-07-06] MEDS: BUDESONIDE 0.5 MG/2 ML NEBU NEB SCH ×2 (10:00→20:15)
[2018-07-06 15:58] VITALS: BP 120/84
[2018-07-06] MEDS: DIVALPROEX ER 500 MG TAB.ER.24H PO SCH (19:28)
[2018-07-06] MEDS: MELATONIN 3 MG TABLET PO SCH (19:29)
--- NOTE | 2018-07-06 20:54 | PDOC ---
Exam Note: Duran Note: Please also refer to the separate dictated note~for this date of service dictated separately.~Patient seen individually. Discussed the patient with Nursing staff reviewed the chart.~Reviewed interim history and current functioning. Reviewed vital signs,~Labs/ Radiology~and current medications noted below. Continue current treatment with the changes noted in the dictated addendum note Assessment: Vital Signs: Vital Signs Date Time Temp Pulse Resp B/P (MAP) Pulse Ox O2 Delivery O2 Flow Rate FiO2 07/06/18 20:15 96 Room Air 07/06/18 15:58 97.6 96 19 120/84 (96) 07/06/18 06:12 2.0 I&O Intake and Output 07/06/18 07:00 Intake Total 1085 ml Balance 1085 ml Intake Oral 1085 ml Current Medications: Meds: Current Medications Acetaminophen (Tylenol) 650 mg PRN Q6HRS PRN PO PAIN / TEMP Last administered on 06/29/18 04:47; Start 06/26/18 at 18:00 Multi-Ingredient Ointment (Analgesic [place]) 1 adilene PRN QID PRN TP MUSCLE PAIN Last administered on 07/01/18 02:03; Start 06/26/18 at 18:00 Al Hydroxide/Mg Hydroxide (Mylanta Plus Xs) 15 ml PRN AFTMEALHC PRN PO DYSPEPSIA; Start 06/26/18 at 18:00 Magnesium Hydroxide (Milk Of Magnesia) 2,400 mg PRN QHS PRN PO CONSTIPATION; Start 06/26/18 at 18:00 Nicotine (Nicoderm Cq 7mg) 1 patch DAILY TD Last administered on 07/06/18at 08:04 ; Start 06/26/18 at 19:30 Albuterol Sulfate (Ventolin Hfa Inhaler) 1 puff PRN Q2HR PRN IH FOR ASTHMA; Start 06/26/18 at 19:00; Status UNV Guaifenesin (Mucinex Er) 600 mg BID PO Last administered on 06/26/18at 20:20; Start 06/26/18 at 21:00; Stop 06/27/18 at 06:30; Status DC Vitamin B Complex 1 cap DAILY PO Last administered on 07/06/18at 08:03; Start at 09:00 Non-Formulary Medication (Budesonide/ Formoterol Fumarate (Symbicort 160-4.5 Mcg Inhaler)) 2 puff BID IH ; Start 06/26/18 at 21:00; Status UNV Artificial Tears (Refresh Classic) 1 drop PRN QID PRN OU DRY EYE; Start at 19:15 Thyroid ([place] Thyroid) 30 mg DAILY PO Last administered on 07/06/18 08:03; Start 06/27/18 at 09:00 Diazepam (Valium) 10 mg BID PO Last administered on 07/06/18 19:30; Start 06/26 at 21:00 Duloxetine HCl (Cymbalta) 60 mg DAILY PO Last administered on 07/02/18 07:42; Start 06/27/18 at 09:00; Stop 07/02/18 at 13:32; Status DC Melatonin 3 mg QHS PO Last administered on 07/06/18 19:29; Start 06/26/18 at 21 :00 Albuterol Sulfate (Ventolin) 2.5 mg PRN Q2HR PRN NEB SHORTNESS OF BREATH; Start 06/26/18 at 19:15 Albuterol Sulfate (Ventolin) 2.5 mg RTQID NEB Last administered on 07/06/18 20: 15; Start 06/26/18 at 20:00 Budesonide (Pulmicort) 0.5 mg RTBID NEB Last administered on 07/06/18 20:15; Start 06/26/18 at 20:00 Guaifenesin (Mucinex Er) 600 mg PRN BID PRN PO CONGESTION; Start 06/27/18 at 06 :30 Tramadol HCl (Ultram) 50 mg PRN Q6HRS PRN PO PAIN Last administered on 13:36; Start 06/27/18 at 17:15 Hydroxyzine Pamoate (Vistaril) 50 mg Q4HRS W/A PRN PO ITCHING Last administered on 07/06/18 20:48; Start 06/27/18 at 19:00 Baclofen (Lioresal) 5 mg TID PO Last administered on 07/06/18 19:28; Start 06/28 at 21:00 Duloxetine HCl (Cymbalta) 20 mg DAILY PO Last administered on 07/06/18 08:03; Start 06/29/18 at 09:00 Divalproex Sodium (Depakote Er) 500 mg QHS PO Last administered on 07/06/18at 19: 28; Start 06/30/18 at 21:00 Duloxetine HCl (Cymbalta) 30 mg DAILY PO Last administered on 07/06/18at 08:02; Start 07/03/18 at 09:00 Risperidone (RisperDAL) 1 mg DAILY PO Last administered on 07/03/18at 10:15; Start 07/02/18 at 14:00; Stop 07/04/18 at 08:05; Status DC Risperidone (RisperDAL) 1 mg DAILY PO ; Start 07/03/18 at 09:00; Stop 07/04/18 at 08:06; Status DC Risperidone (RisperDAL) 1.5 mg DAILY PO Last administered on 07/06/18at 08:03; Start 07/04/18 at 09:00 Active Scripts Active Reported Symbicort 160-4.5 Mcg Inhaler (Budesonide/Formoterol Fumarate) 10.2 Gm Hfa.aer.ad 2 Puff IH BID Ventolin Hfa Inhaler (Albuterol Sulfate) 18 Gm Hfa.aer.ad 1 Puff IH PRN Q2HR PRN Systane 0.3-0.4% Eye Drops (Propylene Glycol/Peg 400) 15 Ml Drops 1 Drop EACHEYE QID PRN Vitamin B Complex 1 Each Capsule 1 Each PO DAILY Mucinex (Guaifenesin) 600 Mg Tablet.er 600 Mg PO BID [place] Thyroid (Thyroid,Pork) 30 Mg Tablet 30 Mg PO DAILY Melatonin 3 Mg Tablet 3 Mg PO QHS Cymbalta (Duloxetine Hcl) 60 Mg Capsule. 60 Mg PO DAILY Diazepam 10 Mg Tablet 10 Mg PO BID I have reviewed the current psychotropics carefully including drug interactions. Risk benefit ratio favors no change other than as noted in my dictated progress note. Diagnosis: Problems: (1) Suicide attempt (2) Tobacco abuse (3) Anxiety disorder (4) Major depressive disorder, recurrent episode (5) Impulse control disorder MICHELLE HOLLOWAY MD Jul 06, 2018 20:54
--- NOTE | 2018-07-06 23:40 | PN ---
DATE: 07/04/2018 PSYCHIATRIC PROGRESS NOTE This is a late entry 07/04/2018 covers elements not covered in my initial note. SUBJECTIVE: I met with the patient in the evening. The patient slept 4-1/2 hours previous night. Risperdal has been increased to 1.5 mg a day consequent to her ongoing paranoia, being somewhat hyperverbal. REVIEW OF SYSTEMS: No CV, , pulmonary, eye, ENT system symptoms on review. Reliability fair. MENTAL STATUS EXAM: Oriented reasonably. Speech coherent, still somewhat pressured. Abstraction fair, computation impaired, language function intact. Mood and affect still somewhat grandiose at times. LABORATORY DATA: Reviewed. IMPRESSION: Unchanged from initial note. PLAN: No change from initial note except that we have just increased the Risperdal to 1.5 mg a day. Continue Cymbalta, melatonin, Valium, hydroxyzine, Depakote ER 500 at bedtime, level therapeutic at 59. MICHELLE HOLLOWAY MD DR: GORDON/roddy JOB#: [id number] / [id number]
[2018-07-07] MEDS: ALBUTEROL SULFATE 2.5 MG/3 ML NEBU. NEB SCH ×4 (05:04→20:05)
[2018-07-07 06:24] VITALS: BP 132/83
[2018-07-07] MEDS: NICOTINE 7MG PATCH. TD SCH (07:38)
[2018-07-07] MEDS: VITAMIN B COMPLEX CAPSULE. PO SCH (07:39)
[2018-07-07] MEDS: DULoxetine HCL 30 MG CAPSULE.DR PO SCH (07:39)
[2018-07-07] MEDS: BACLOFEN 10 MG TABLET PO SCH ×3 (07:39→20:10)
[2018-07-07] MEDS: DULoxetine HCL 20 MG CAPSULE.DR PO SCH (07:39)
[2018-07-07] MEDS: risperiDONE 1 MG TABLET. PO SCH (07:40)
[2018-07-07] MEDS: diazePAM 5 MG TABLET PO SCH ×2 (07:40→20:10)
[2018-07-07] MEDS: ACETAMINOPHEN 325 MG TABLET PO PRN (07:41)
[2018-07-07] MEDS: THYROID,PORK 60 MG TABLET PO SCH (07:42)
[2018-07-07 07:56] LABS: VAL ACID 83 mcg/mL (50-100)
[2018-07-07] MEDS: BUDESONIDE 0.5 MG/2 ML NEBU NEB SCH ×2 (11:39→20:05)
[2018-07-07] MEDS ORDERED: BACL10TA PO (14:59)
[2018-07-07] MEDS ORDERED: BACL5TAB PO (15:05)
[2018-07-07] MEDS ORDERED: NICO1PAT27 TD (15:06)
[2018-07-07] MEDS ORDERED: METH29OI TP (15:09)
[2018-07-07] MEDS ORDERED: TRAM50TA PO (15:10)
[2018-07-07] MEDS ORDERED: ACET325T9 PO (15:11)
[2018-07-07] MEDS ORDERED: DIVA500T4 PO (15:12)
[2018-07-07] MEDS ORDERED: RISP1TAB43 PO (15:14)
[2018-07-07] MEDS ORDERED: HYDR50CA2 PO (15:16)
[2018-07-07 15:52] VITALS: BP 124/83
[2018-07-07] MEDS: MELATONIN 3 MG TABLET PO SCH (20:10)
[2018-07-07] MEDS: DIVALPROEX ER 500 MG TAB.ER.24H PO SCH (20:10)
--- NOTE | 2018-07-07 20:52 | PDOC ---
Exam Note: Druan Note: Please also refer to the separate dictated note~for this date of service dictated separately.~Patient seen individually. Discussed the patient with Nursing staff reviewed the chart.~Reviewed interim history and current functioning. Reviewed vital signs,~Labs/ Radiology~and current medications noted below. Continue current treatment with the changes noted in the dictated addendum note Assessment: Vital Signs: Vital Signs Date Time Temp Pulse Resp B/P (MAP) Pulse Ox O2 Delivery O2 Flow Rate FiO2 07/07/18 20:06 Room Air 07/07/18 16:45 100 07/07/18 15:52 97.9 81 18 124/83 (97) 07/07/18 06:24 3.0 I&O Intake and Output 07/07/18 07:00 Intake Total 960 ml Balance 960 ml Intake Oral 960 ml Labs: Laboratory Tests Test 07/07/18 07:29 Valproic Acid Level 83 mcg/mL (50-100) Valproic Acid Last Dose Date 07/06/18 Valproic Acid Last Dose Time 2100 Current Medications: Meds: Current Medications Acetaminophen (Tylenol) 650 mg PRN Q6HRS PRN PO PAIN / TEMP Last administered on 07/07/18at 07:41; Start 06/26/18 at 18:00 Multi-Ingredient Ointment (Analgesic [place]) 1 adilene PRN QID PRN TP MUSCLE PAIN Last administered on 07/01/18at 02:03; Start 06/26/18 at 18:00 Al Hydroxide/Mg Hydroxide (Mylanta Plus Xs) 15 ml PRN AFTMEALHC PRN PO DYSPEPSIA; Start 06/26/18 at 18:00 Magnesium Hydroxide (Milk Of Magnesia) 2,400 mg PRN QHS PRN PO CONSTIPATION; Start 06/26/18 at 18:00 Nicotine (Nicoderm Cq 7mg) 1 patch DAILY TD Last administered on 07/07/18at 07: 38; Start 06/26/18 at 19:30 Albuterol Sulfate (Ventolin Hfa Inhaler) 1 puff PRN Q2HR PRN IH FOR ASTHMA; Start 06/26/18 at 19:00; Status UNV Guaifenesin (Mucinex Er) 600 mg BID PO Last administered on 06/26/18at 20:20; Start 06/26/18 at 21:00; Stop 06/27/18 at 06:30; Status DC Vitamin B Complex 1 cap DAILY PO Last administered on 07/07/18at 07:39; Start at 09:00 Non-Formulary Medication (Budesonide/ Formoterol Fumarate (Symbicort 160-4.5 Mcg Inhaler)) 2 puff BID IH ; Start 06/26/18 at 21:00; Status UNV Artificial Tears (Refresh Classic) 1 drop PRN QID PRN OU DRY EYE; Start at 19:15 Thyroid ([place] Thyroid) 30 mg DAILY PO Last administered on 07/07/18 07:42; Start 06/27/18 at 09:00 Diazepam (Valium) 10 mg BID PO Last administered on 07/07/18 20:10; Start at 21:00 Duloxetine HCl (Cymbalta) 60 mg DAILY PO Last administered on 07/02/18at 07:42; Start 06/27/18 at 09:00; Stop 07/02/18 at 13:32; Status DC Melatonin 3 mg QHS PO Last administered on 07/07/18at 20:10; Start 06/26/18 at 21:00 Albuterol Sulfate (Ventolin) 2.5 mg PRN Q2HR PRN NEB SHORTNESS OF BREATH; Start 06/26/18 at 19:15 Albuterol Sulfate (Ventolin) 2.5 mg RTQID NEB Last administered on 07/07/18at 20 :05; Start 06/26/18 at 20:00 Budesonide (Pulmicort) 0.5 mg RTBID NEB Last administered on 07/07/18at 20:05; Start 06/26/18 at 20:00 Guaifenesin (Mucinex Er) 600 mg PRN BID PRN PO CONGESTION; Start 06/27/18 at 06 :30 Tramadol HCl (Ultram) 50 mg PRN Q6HRS PRN PO PAIN Last administered on at 13:36; Start 06/27/18 at 17:15 Hydroxyzine Pamoate (Vistaril) 50 mg Q4HRS W/A PRN PO ITCHING Last administered on 07/06/18at 20:48; Start 06/27/18 at 19:00 Baclofen (Lioresal) 5 mg TID PO Last administered on 07/07/18at 20:10; Start 06/28/18 at 21:00 Duloxetine HCl (Cymbalta) 20 mg DAILY PO Last administered on 07/07/18at 07:39; Start 06/29/18 at 09:00 Divalproex Sodium (Depakote Er) 500 mg QHS PO Last administered on 07/07/18at 20 :10; Start 06/30/18 at 21:00 Duloxetine HCl (Cymbalta) 30 mg DAILY PO Last administered on 07/07/18at 07:39; Start 07/03/18 at 09:00 Risperidone (RisperDAL) 1 mg DAILY PO Last administered on 07/03/18at 10:15; Start 07/02/18 at 14:00; Stop 07/04/18 at 08:05; Status DC Risperidone (RisperDAL) 1 mg DAILY PO ; Start 07/03/18 at 09:00; Stop 07/04/18 at 08:06; Status DC Risperidone (RisperDAL) 1.5 mg DAILY PO Last administered on 07/07/18at 07:40; Start 07/04/18 at 09:00 Active Scripts Active Reported Hydroxyzine Pamoate 50 Mg Capsule 1 Cap PO TID Risperdal (Risperidone) 1 Mg Tablet 1 Tab PO QHS Depakote Er (Divalproex Sodium) 500 Mg Tab.er.24h 1 Tab PO BID Tylenol (Acetaminophen) 325 Mg Tablet 325 Mg PO Tramadol Hcl (Tramadol HCl) 50 Mg Tablet 50 Mg PO PRN Q6HRS PRN Analgesic [place] (Methyl Salicylate/Menthol) 28 Gm Oint...g. 1 Gm TP NICODERM CQ 7mg (Nicotine) 1 Each Patch.td24 1 Patch TD Baclofen 5 Mg Tablet 5 Mg PO Symbicort 160-4.5 Mcg Inhaler (Budesonide/Formoterol Fumarate) 10.2 Gm Hfa.aer.ad 2 Puff IH BID Ventolin Hfa Inhaler (Albuterol Sulfate) 18 Gm Hfa.aer.ad 1 Puff IH PRN Q2HR PRN Systane 0.3-0.4% Eye Drops (Propylene Glycol/Peg 400) 15 Ml Drops 1 Drop EACHEYE QID PRN Vitamin B Complex 1 Each Capsule 1 Each PO DAILY Mucinex (Guaifenesin) 600 Mg Tablet.er 600 Mg PO BID [place] Thyroid (Thyroid,Pork) 30 Mg Tablet 30 Mg PO DAILY Melatonin 3 Mg Tablet 3 Mg PO QHS Cymbalta (Duloxetine Hcl) 60 Mg Capsule.dr 60 Mg PO DAILY Diazepam 10 Mg Tablet 10 Mg PO BID I have reviewed the current psychotropics carefully including drug interactions. Risk benefit ratio favors no change other than as noted in my dictated progress note. Diagnosis: Problems: (1) Suicide attempt (2) Tobacco abuse (3) Anxiety disorder (4) Major depressive disorder, recurrent episode (5) Impulse control disorder MICHELLE HOLLOWAY MD Jul 07, 2018 20:52
--- NOTE | 2018-07-07 20:59 | PN ---
DATE: 07/05/2018 PSYCHIATRIC PROGRESS NOTE This late entry 07/05/2018 covers elements not covered in my initial note. SUBJECTIVE: Met with the patient in the evening. Overall, the patient has been irritable in the morning, refused the morning shower, was hard doing, somewhat labile, anxious, but better later in the day. REVIEW OF SYSTEMS: No CV, , pulmonary, eye, ENT system symptoms on review. MENTAL STATUS EXAM: The patient is reasonably oriented. Speech is coherent, somewhat pressured. Abstraction fair, computation impaired, language function intact, attention span short. Mood and affect remains somewhat grandiose at times. LABORATORY DATA: Reviewed. IMPRESSION: Unchanged from initial note. PLAN: Check and repeat valproic acid level on Saturday morning. Rest unchanged from initial note. MAN Joselyn HOLLOWAY MD DR: GORDON/roddy JOB#: [id number] / [id number]
--- NOTE | 2018-07-07 22:45 | PN ---
DATE: 07/06/2018 This is a late entry, 07/06/2018, covers the elements not covered in my initial note. SUBJECTIVE: I met with the patient in the evening. The patient remains somewhat hyperverbal, slightly grandiose, but much improved. REVIEW OF SYSTEM: No CV, , pulmonary, eye system symptoms on review. She is obsessed about wanting the walter back. MENTAL STATUS EXAM: Reasonably oriented. Speech coherent, a little pressured at times. Abstraction fair, computation impaired, language function intact, attention span short. Mood and affect appears less grandiose. LABORATORY DATA: Reviewed. IMPRESSION: Unchanged from initial note. PLAN: No change from initial note. Maintain Cymbalta, melatonin, Valium, hydroxyzine, Risperdal, Depakote ER. Check labs level on the Depsaturday, 07/07/2018. Last level was 59, therapeutic. MAN Joselyn HOLLOWAY MD DR: GORDON/roddy JOB#: [id number] / [id number]
[2018-07-07] MEDS ORDERED: MAGN2400 PO (22:51)
[2018-07-07] MEDS ORDERED: MAG30ORA2 PO (22:52)
[2018-07-08] MEDS: traMADol 50 MG TABLET PO PRN (02:56)
[2018-07-08] MEDS: BUDESONIDE 0.5 MG/2 ML NEBU NEB SCH ×2 (05:05→20:40)
[2018-07-08] MEDS: ALBUTEROL SULFATE 2.5 MG/3 ML NEBU. NEB SCH ×4 (05:05→20:40)
[2018-07-08 06:31] VITALS: BP 136/72
[2018-07-08] MEDS: DULoxetine HCL 30 MG CAPSULE.DR PO SCH (08:53)
[2018-07-08] MEDS: DULoxetine HCL 20 MG CAPSULE.DR PO SCH (08:53)
[2018-07-08] MEDS: BACLOFEN 10 MG TABLET PO SCH ×3 (08:53→19:47)
[2018-07-08] MEDS: risperiDONE 1 MG TABLET. PO SCH (08:54)
[2018-07-08] MEDS: diazePAM 5 MG TABLET PO SCH ×2 (08:54→19:47)
[2018-07-08] MEDS: NICOTINE 7MG PATCH. TD SCH (08:55)
[2018-07-08] MEDS: VITAMIN B COMPLEX CAPSULE. PO SCH (08:55)
[2018-07-08] MEDS: THYROID,PORK 60 MG TABLET PO SCH (08:56)
[2018-07-08 16:17] VITALS: BP 141/79
[2018-07-08] MEDS: MELATONIN 3 MG TABLET PO SCH (19:47)
[2018-07-08] MEDS: DIVALPROEX ER 500 MG TAB.ER.24H PO SCH (19:48)
--- NOTE | 2018-07-08 20:51 | PDOC ---
Exam Note: Duran Note: Please also refer to the separate dictated note~for this date of service dictated separately.~Patient seen individually. Discussed the patient with Nursing staff reviewed the chart.~Reviewed interim history and current functioning. Reviewed vital signs,~Labs/ Radiology~and current medications noted below. Continue current treatment with the changes noted in the dictated addendum note Assessment: Vital Signs: Vital Signs Date Time Temp Pulse Resp B/P (MAP) Pulse Ox O2 Delivery O2 Flow Rate FiO2 07/08/18 20:41 98 Room Air 07/08/18 16:17 97.3 92 20 141/79 (99) 07/08/18 02:56 3.0 I&O Intake and Output 07/08/18 07:00 Intake Total 1200 ml Balance 1200 ml Intake Oral 1200 ml # Voids 1 Current Medications: Meds: Current Medications Acetaminophen (Tylenol) 650 mg PRN Q6HRS PRN PO PAIN / TEMP Last administered on 07/07/18 07:41; Start 06/26/18 at 18:00 Multi-Ingredient Ointment (Analgesic [place]) 1 adilene PRN QID PRN TP MUSCLE PAIN Last administered on 07/01/18 02:03; Start 06/26/18 at 18:00 Al Hydroxide/Mg Hydroxide (Mylanta Plus Xs) 15 ml PRN AFTMEALHC PRN PO DYSPEPSIA; Start 06/26/18 at 18:00 Magnesium Hydroxide (Milk Of Magnesia) 2,400 mg PRN QHS PRN PO CONSTIPATION; Start 06/26/18 at 18:00 Nicotine (Nicoderm Cq 7mg) 1 patch DAILY TD Last administered on 07/08/18at 08: 55; Start 06/26/18 at 19:30 Albuterol Sulfate (Ventolin Hfa Inhaler) 1 puff PRN Q2HR PRN IH FOR ASTHMA; Start 06/26/18 at 19:00; Status UNV Guaifenesin (Mucinex Er) 600 mg BID PO Last administered on 06/26/18at 20:20; Start 06/26/18 at 21:00; Stop 06/27/18 at 06:30; Status DC Vitamin B Complex 1 cap DAILY PO Last administered on 07/08/18at 08:55; Start at 09:00 Non-Formulary Medication (Budesonide/ Formoterol Fumarate (Symbicort 160-4.5 Mcg Inhaler)) 2 puff BID IH ; Start 06/26/18 at 21:00; Status UNV Artificial Tears (Refresh Classic) 1 drop PRN QID PRN OU DRY EYE; Start at 19:15 Thyroid ([place] Thyroid) 30 mg DAILY PO Last administered on 07/08/18 08:56; Start 06/27/18 at 09:00 Diazepam (Valium) 10 mg BID PO Last administered on 07/08/18 19:47; Start at 21:00 Duloxetine HCl (Cymbalta) 60 mg DAILY PO Last administered on 07/02/18 07:42; Start 06/27/18 at 09:00; Stop 07/02/18 at 13:32; Status DC Melatonin 3 mg QHS PO Last administered on 07/08/18 19:47; Start 06/26/18 at 21:00 Albuterol Sulfate (Ventolin) 2.5 mg PRN Q2HR PRN NEB SHORTNESS OF BREATH; Start 06/26/18 at 19:15 Albuterol Sulfate (Ventolin) 2.5 mg RTQID NEB Last administered on 07/08/18 20 :40; Start 06/26/18 at 20:00 Budesonide (Pulmicort) 0.5 mg RTBID NEB Last administered on 07/08/18 20:40; Start 06/26/18 at 20:00 Guaifenesin (Mucinex Er) 600 mg PRN BID PRN PO CONGESTION; Start 06/27/18 at 06 :30 Tramadol HCl (Ultram) 50 mg PRN Q6HRS PRN PO PAIN Last administered on 02:56; Start 06/27/18 at 17:15 Hydroxyzine Pamoate (Vistaril) 50 mg Q4HRS W/A PRN PO ITCHING Last administered on 07/06/18 20:48; Start 06/27/18 at 19:00 Baclofen (Lioresal) 5 mg TID PO Last administered on 07/08/18 19:47; Start 06/28/18 at 21:00 Duloxetine HCl (Cymbalta) 20 mg DAILY PO Last administered on 9/11/18at 08:53; Start 06/29/18 at 09:00 Divalproex Sodium (Depakote Er) 500 mg QHS PO Last administered on 07/08/18at 19 :48; Start 06/30/18 at 21:00 Duloxetine HCl (Cymbalta) 30 mg DAILY PO Last administered on 07/08/18at 08:53; Start 07/03/18 at 09:00 Risperidone (RisperDAL) 1 mg DAILY PO Last administered on 07/03/18at 10:15; Start 07/02/18 at 14:00; Stop 07/04/18 at 08:05; Status DC Risperidone (RisperDAL) 1 mg DAILY PO ; Start 07/03/18 at 09:00; Stop 07/04/18 at 08:06; Status DC Risperidone (RisperDAL) 1.5 mg DAILY PO Last administered on 07/08/18at 08:54; Start 07/04/18 at 09:00 Active Scripts Active Reported Mag-Al Plus Xs Suspension (Mag Hydrox/Al Hydrox/Simeth) 30 Ml Oral.susp 15 Ml PO PRN AFTMEALHC PRN Milk Of Magnesia (Magnesium Hydroxide) 2,400 Mg/10 Ml Oral.susp 2,400 Mg PO PRN QHS PRN Hydroxyzine Pamoate 50 Mg Capsule 50 Mg PO PRN Q4HRS PRN MDD 100 Risperdal (Risperidone) 1 Mg Tablet 1.5 Mg PO DAILY Depakote Er (Divalproex Sodium) 500 Mg Tab.er.24h 500 Mg PO QHS Tylenol (Acetaminophen) 325 Mg Tablet 650 Mg PO PRN Q6HRS PRN Tramadol Hcl (Tramadol HCl) 50 Mg Tablet 50 Mg PO PRN Q6HRS PRN Analgesic [place] (Methyl Salicylate/Menthol) 28 Gm Oint...g. 1 Gm TP PRN QID PRN NICODERM CQ 7mg (Nicotine) 1 Each Patch.td24 1 Patch TD DAILY Baclofen 5 Mg Tablet 5 Mg PO TID Symbicort 160-4.5 Mcg Inhaler (Budesonide/Formoterol Fumarate) 10.2 Gm Hfa.aer.ad 2 Puff IH BID Ventolin Hfa Inhaler (Albuterol Sulfate) 18 Gm Hfa.aer.ad 1 Puff IH PRN Q2HR PRN Systane 0.3-0.4% Eye Drops (Propylene Glycol/Peg 400) 15 Ml Drops 1 Drop EACHEYE QID PRN Vitamin B Complex 1 Each Capsule 1 Each PO DAILY Mucinex (Guaifenesin) 600 Mg Tablet.er 600 Mg PO BID [place] Thyroid (Thyroid,Pork) 30 Mg Tablet 30 Mg PO DAILY Melatonin 3 Mg Tablet 3 Mg PO QHS Cymbalta (Duloxetine Hcl) 60 Mg Capsule.dr 60 Mg PO DAILY Diazepam 10 Mg Tablet 10 Mg PO BID I have reviewed the current psychotropics carefully including drug interactions. Risk benefit ratio favors no change other than as noted in my dictated progress note. Diagnosis: Problems: (1) Suicide attempt (2) Tobacco abuse (3) Anxiety disorder (4) Major depressive disorder, recurrent episode (5) Impulse control disorder MICHELLE HOLLOWAY MD Jul 08, 2018 20:51
--- NOTE | 2018-07-08 21:11 | PN ---
DATE: 07/07/2018 PSYCHIATRIC PROGRESS NOTE This is a late entry 07/07/2018 covers elements not covered in my initial note. SUBJECTIVE: I met with the patient in the evenings. The patient slept 7 hours previous night, has been hyperverbal, but less intrusive. She has been accepted at [facility]. REVIEW OF SYSTEMS: No CV, , pulmonary, eye, ENT system symptoms on review. MENTAL STATUS EXAM: Well oriented. Speech coherent, still some pressure of speech is evident. Abstraction fair, computation somewhat impaired, language function intact. Mood and affect appears overall more stable. No suicidal ideation and I assessed her very carefully for this. LABORATORY DATA: Reviewed. IMPRESSION: Bipolar 1 disorder, mixed, in partial remission; anxiety disorder, unspecified; impulse control disorder, unspecified. PLAN: No change from initial note. Valproic acid level therapeutic and as an outpatient we will monitor her labs and valproic acid level every 2-3 months. MICHELLE HOLLOWAY MD DR: GORDON/roddy JOB#: [id number] / [id number]
[2018-07-09] MEDS: traMADol 50 MG TABLET PO PRN (02:04)
[2018-07-09 05:44] VITALS: BP 155/97
[2018-07-09] MEDS: ALBUTEROL SULFATE 2.5 MG/3 ML NEBU. NEB SCH ×2 (05:49→09:26)
[2018-07-09] MEDS: DULoxetine HCL 30 MG CAPSULE.DR PO SCH (08:00)
[2018-07-09] MEDS: DULoxetine HCL 20 MG CAPSULE.DR PO SCH (08:01)
[2018-07-09] MEDS: VITAMIN B COMPLEX CAPSULE. PO SCH (08:01)
[2018-07-09] MEDS: hydrOXYzine PAMOATE 25 MG CAPSULE PO PRN (08:01)
[2018-07-09] MEDS: BACLOFEN 10 MG TABLET PO SCH (08:02)
[2018-07-09] MEDS: NICOTINE 7MG PATCH. TD SCH (08:03)
[2018-07-09] MEDS: risperiDONE 1 MG TABLET. PO SCH (08:03)
[2018-07-09] MEDS: diazePAM 5 MG TABLET PO SCH (08:05)
[2018-07-09] MEDS: THYROID,PORK 60 MG TABLET PO SCH (08:15)
[2018-07-09] MEDS: BUDESONIDE 0.5 MG/2 ML NEBU NEB SCH (09:26)
--- NOTE | 2018-07-09 20:55 | PDOC ---
Exam Note: Duran Note: Please also refer to the separate dictated note~for this date of service dictated separately.~Patient seen individually. Discussed the patient with Nursing staff reviewed the chart.~Reviewed interim history and current functioning. Reviewed vital signs,~Labs/ Radiology~and current medications noted below. Continue current treatment with the changes noted in the dictated addendum note Assessment: Vital Signs: Vital Signs Date Time Temp Pulse Resp B/P (MAP) Pulse Ox O2 Delivery O2 Flow Rate FiO2 07/09/18 09:28 96 Room Air 07/09/18 05:44 97.6 80 20 155/97 (116) 07/09/18 02:04 3.0 I&O Intake and Output 07/09/18 07:00 Intake Total 1200 ml Balance 1200 ml Intake Oral 1200 ml # Bowel Movements 1 Current Medications: Meds: Current Medications Acetaminophen (Tylenol) 650 mg PRN Q6HRS PRN PO PAIN / TEMP Last administered on 07/07/18at 07:41; Start 06/26/18 at 18:00; Stop 07/09/18 at 11:01; Status DC Multi-Ingredient Ointment (Analgesic [place]) 1 [place]ene PRN QID PRN TP MUSCLE PAIN Last administered on 07/01/18at 02:03; Start 06/26/18 at 18:00; Stop 07/09/18 at 11:01; Status DC Al Hydroxide/Mg Hydroxide (Mylanta Plus Xs) 15 ml PRN AFTMEALHC PRN PO DYSPEPSIA; Start 06/26/18 at 18:00; Stop 07/09/18 at 11:01; Status DC Magnesium Hydroxide (Milk Of Magnesia) 2,400 mg PRN QHS PRN PO CONSTIPATION; Start 06/26/18 at 18:00; Stop 07/09/18 at 11:01; Status DC Nicotine (Nicoderm Cq 7mg) 1 patch DAILY TD Last administered on 07/09/18at 08: 03; Start 06/26/18 at 19:30; Stop 07/09/18 at 11:01; Status DC Albuterol Sulfate (Ventolin Hfa Inhaler) 1 puff PRN Q2HR PRN IH FOR ASTHMA; Start 06/26/18 at 19:00; Status UNV Guaifenesin (Mucinex Er) 600 mg BID PO Last administered on 06/26/18at 20:20; Start 06/26/18 at 21:00; Stop 06/27/18 at 06:30; Status DC Vitamin B Complex 1 cap DAILY PO Last administered on 07/09/18at 08:01; Start at 09:00; Stop 07/09/18 at 11:01; Status DC Non-Formulary Medication (Budesonide/ Formoterol Fumarate (Symbicort 160-4.5 Mcg Inhaler)) 2 puff BID IH ; Start 06/26/18 at 21:00; Status UNV Artificial Tears (Refresh Classic) 1 drop PRN QID PRN OU DRY EYE; Start at 19:15; Stop 07/09/18 at 11:01; Status DC Thyroid (Cary Thyroid) 30 mg DAILY PO Last administered on 07/09/18at 08:15; Start 06/27/18 at 09:00; Stop 07/09/18 at 11:01; Status DC Diazepam (Valium) 10 mg BID PO Last administered on 07/09/18at 08:05; Start at 21:00; Stop 07/09/18 at 11:01; Status DC Duloxetine HCl (Cymbalta) 60 mg DAILY PO Last administered on 07/02/18at 07:42; Start 06/27/18 at 09:00; Stop 07/02/18 at 13:32; Status DC Melatonin 3 mg QHS PO Last administered on 07/08/18at 19:47; Start 06/26/18 at 21:00; Stop 07/09/18 at 11:01; Status DC Albuterol Sulfate (Ventolin) 2.5 mg PRN Q2HR PRN NEB SHORTNESS OF BREATH; Start 06/26/18 at 19:15; Stop 07/09/18 at 11:01; Status DC Albuterol Sulfate (Ventolin) 2.5 mg RTQID NEB Last administered on 07/09/18at 09 :26; Start 06/26/18 at 20:00; Stop 07/09/18 at 11:01; Status DC Budesonide (Pulmicort) 0.5 mg RTBID NEB Last administered on 07/09/18at 09:26; Start 06/26/18 at 20:00; Stop 07/09/18 at 11:01; Status DC Guaifenesin (Mucinex Er) 600 mg PRN BID PRN PO CONGESTION; Start 06/27/18 at 06 :30; Stop 07/09/18 at 11:01; Status DC Tramadol HCl (Ultram) 50 mg PRN Q6HRS PRN PO PAIN Last administered on at 02:04; Start 06/27/18 at 17:15; Stop 07/09/18 at 11:01; Status DC Hydroxyzine Pamoate (Vistaril) 50 mg Q4HRS W/A PRN PO ITCHING Last administered on 07/09/18at 08:01; Start 06/27/18 at 19:00; Stop 07/09/18 at 11:01 ; Status DC Baclofen (Lioresal) 5 mg TID PO Last administered on 07/09/18at 08:02; Start 06/28/18 at 21:00; Stop 07/09/18 at 11:01; Status DC Duloxetine HCl (Cymbalta) 20 mg DAILY PO Last administered on 07/09/18at 08:01; Start 06/29/18 at 09:00; Stop 07/09/18 at 11:01; Status DC Divalproex Sodium (Depakote Er) 500 mg QHS PO Last administered on 07/08/18at 19 :48; Start 06/30/18 at 21:00; Stop 07/09/18 at 11:01; Status DC Duloxetine HCl (Cymbalta) 30 mg DAILY PO Last administered on 07/09/18at 08:00; Start 07/03/18 at 09:00; Stop 07/09/18 at 11:01; Status DC Risperidone (RisperDAL) 1 mg DAILY PO Last administered on 07/03/18at 10:15; Start 07/02/18 at 14:00; Stop 07/04/18 at 08:05; Status DC Risperidone (RisperDAL) 1 mg DAILY PO ; Start 07/03/18 at 09:00; Stop 07/04/18 at 08:06; Status DC Risperidone (RisperDAL) 1.5 mg DAILY PO Last administered on 07/09/18at 08:03; Start 07/04/18 at 09:00; Stop 07/09/18 at 11:01; Status DC Active Scripts Active Reported Mag-Al Plus Xs Suspension (Mag Hydrox/Al Hydrox/Simeth) 30 Ml Oral.susp 15 Ml PO PRN AFTMEALHC PRN Milk Of Magnesia (Magnesium Hydroxide) 2,400 Mg/10 Ml Oral.susp 2,400 Mg PO PRN QHS PRN Hydroxyzine Pamoate 50 Mg Capsule 50 Mg PO PRN Q4HRS PRN MDD 100 Risperdal (Risperidone) 1 Mg Tablet 1.5 Mg PO DAILY Depakote Er (Divalproex Sodium) 500 Mg Tab.er.24h 500 Mg PO QHS Tylenol (Acetaminophen) 325 Mg Tablet 650 Mg PO PRN Q6HRS PRN Tramadol Hcl (Tramadol HCl) 50 Mg Tablet 50 Mg PO PRN Q6HRS PRN Analgesic [place] (Methyl Salicylate/Menthol) 28 Gm Oint...g. 1 Gm TP PRN QID PRN NICODERM CQ 7mg (Nicotine) 1 Each Patch.td24 1 Patch TD DAILY Baclofen 5 Mg Tablet 5 Mg PO TID Symbicort 160-4.5 Mcg Inhaler (Budesonide/Formoterol Fumarate) 10.2 Gm Hfa.aer.ad 2 Puff IH BID Ventolin Hfa Inhaler (Albuterol Sulfate) 18 Gm Hfa.aer.ad 1 Puff IH PRN Q2HR PRN Systane 0.3-0.4% Eye Drops (Propylene Glycol/Peg 400) 15 Ml Drops 1 Drop EACHEYE QID PRN Vitamin B Complex 1 Each Capsule 1 Each PO DAILY Mucinex (Guaifenesin) 600 Mg Tablet.er 600 Mg PO BID [place] Thyroid (Thyroid,Pork) 30 Mg Tablet 30 Mg PO DAILY Melatonin 3 Mg Tablet 3 Mg PO QHS Cymbalta (Duloxetine Hcl) 60 Mg Capsule. 60 Mg PO DAILY Diazepam 10 Mg Tablet 10 Mg PO BID I have reviewed the current psychotropics carefully including drug interactions. Risk benefit ratio favors no change other than as noted in my dictated progress note. Diagnosis: Problems: (1) Anxiety disorder (2) Major depressive disorder, recurrent episode (3) Impulse control disorder MICHELLE HOLLOWAY MD Jul 09, 2018 20:55
--- NOTE | 2018-07-09 21:47 | PN ---
DATE: 07/08/2018 This late entry, 07/08/2018, covers elements not covered in my initial note. SUBJECTIVE: I met with the patient in the evening at length in her room. The patient slept 5-3/4 hours previous night. She was scheduled to be discharged 07/08/2018, but the transportation did not arrive and she was quite upset about this. I addressed this with her individually and she was calmer at the end of the visit. REVIEW OF SYSTEMS: No CV, , pulmonary, eye system symptoms on review. MENTAL STATUS EXAM: The patient is reasonably oriented. Speech coherent, somewhat rapid at times. Abstraction fair, computation impaired, language function intact. Mood and affect still somewhat grandiose, but better than before. LABORATORY DATA: Reviewed. IMPRESSION: Unchanged from initial note. PLAN: No change from initial note. MAN Joselyn HOLLOWAY MD DR: GORDON/roddy JOB#: [id number] / [id number]
--- NOTE | 2018-07-10 14:36 | DS ---
DATE OF DISCHARGE: 07/09/2018 This late entry 06/26/2018 covers elements not covered in my initial note. REASON FOR ADMISSION: Please refer to the admission history for details. Briefly, the patient is a 68-year-old female who was referred from the [facility] after she attempted to hang herself with a dog leash from the ceiling fan after being told by the Configuration Release Manager that she had 3 hours to collect her belongings because her ex- was evicting her from the home. The ceiling fan dropped to the floor and she ended up not successfully committing suicide, though she had every intention to make it happen. She still had some noose jean-baptiste on her neck. She had failed outpatient psychiatric intervention, spent the night with the [facility] facility being monitored closely and then admitted to us for psychiatric stabilization. Careful review of her past history was reflective of her diagnosis of bipolar disorder and she was depressed. SIGNIFICANT FINDINGS AND CLINICAL COURSE: Following admission, the patient was seen daily individually by myself, followed medically per Dr. Llanes/Dr. Ng. She was quite labile in her mood, intermittently depressed, somewhat paranoid. Adjustments were made in her psychotropics and she seemed to respond to a combination of Cymbalta ____ mg a day, melatonin 3 mg at bedtime, still remained on Valium 10 mg b.i.d., but this could be tapered in due course as an outpatient and she was on hydroxyzine p.r.n., Depakote ER 500 mg at bedtime with a valproic acid level therapeutic at 83. Risperdal 1.5 mg daily. Gradually mood appeared to improve. She was still hyperverbal, but much more amiable and no suicidal ideation, no psychotic symptoms at discharge. CONDITION AT DISCHARGE: Improved prior to discharge. REVIEW OF SYSTEMS: No CV, , pulmonary, eye, ENT system symptoms on review. MENTAL STATUS EXAM: Oriented reasonably. Speech coherent, somewhat pressured. Abstraction fair, computation reasonable, language function intact. Mood and affect overall improved. LABORATORY DATA: Reviewed. FINAL DIAGNOSES: Bipolar 1 disorder, mixed with psychotic features, in partial remission; anxiety disorder, unspecified; impulse control disorder, unspecified. Rest unchanged from admission. DISCHARGE MEDICATIONS: Please refer to the MRAD. DISCHARGE INSTRUCTIONS: As an outpatient, consideration may be given to reducing the Cymbalta if she remains somewhat hypomanic and Valium could be tapered in due course. Time for discharge management greater than 30 minutes. MAN Joselyn HOLLOWAY MD DR: GORDON/roddy JOB#: [id number] / [id number]
== END 2018-07-09 10:15 | DRG 885 ==
LOC: ER 12:10 → GEROPSY 17:10
PROVIDERS: ADMIT Psychiatry & Neurology Psychiatry; ATTEND Psychiatry & Neurology Psychiatry
DX: F31.64 Bipolar disorder, current episode mixed, severe, with psychotic features (principal); R45.851 Suicidal ideations; D64.9 Anemia, unspecified; E03.9 Hypothyroidism, unspecified; E78.5 Hyperlipidemia, unspecified; F17.200 Nicotine dependence, unspecified, uncomplicated; F22 Delusional disorders; F41.9 Anxiety disorder, unspecified; F60.9 Personality disorder, unspecified; F63.9 Impulse disorder, unspecified; G47.00 Insomnia, unspecified; J44.9 Chronic obstructive pulmonary disease, unspecified; Z88.5 Allergy status to narcotic agent
CPT/HCPCS: 36415; 73502; 80053; 80061; 80164; 80307; 81001; 82607; 83036; 83540; 83550; 83735; 84436; 84443; 84480; 85025; 93005; 94640; 99407; J7613; J7626; Q0177; 99285-25; G0479